=== PATIENT | male | born 1955 | race Hispanic/Latino ===

== ENCOUNTER 2017-11-14 21:59 | Inpatient (IN) | payer MEDICARE ==
[2017-11-14 22:07] VITALS: BMI 21.1
--- NOTE | 2017-11-14 22:40 | ED PDOC ---
Arrival/HPI - General Chief Complaint: Seizure Time Seen by Provider: 11/14/17 22:01 Historian: Family (Brother) - History of Present Illness Narrative History of Present Illness (Text): 11/14/17 22:31 A 61 year old male, whose past medical history includes schizophrenia, presents to the emergency department via EMS with brother, s/p a seizure- like episode this evening. The patient's brother states that the patient was sitting in the kitchen about to eat his meal when he started shaking and moving his arms. He states that at the time of the episode, the patient's eyes were "fixed". The patient's brother notes that the patient does not have history of diabetes or seizures. The patient's brother notes that EMS took his blood glucose level at the scene, which was 28. The patient denies fevers, chills, headache, dizziness , chest pain, shortness of breath, dyspnea on exertion, cough, abdominal pain, nausea, vomiting, diarrhea, back pain, neck pain, urinary/bowel changes, or any other complaint. PMD: Dr. Saenz Time/Duration: Other (This evening) Symptom Onset: Sudden Symptom Course: Unchanged Activities at Onset: Rest, Light Context: Sitting, Home Past Medical History - Provider Review Nursing Documentation Reviewed: Yes - Infectious Disease Hx of Infectious Diseases: None - Endocrine/Metabolic Hx Hypothyroidism: Yes - Psychiatric Hx Psychophysiologic Disorder: Yes Hx Substance Use: No - Surgical History Other/Comment: Throat and intestinal surgery - Anesthesia Hx Anesthesia: Yes Hx Anesthesia Reactions: No Hx Malignant Hyperthermia: No Family/Social History - Physician Review Nursing Documentation Reviewed: Yes Family/Social History: No Known Family HX Smoking Status: Former Smoker Hx Alcohol Use: No Hx Substance Use: No Allergies/Home Meds Allergies/Adverse Reactions: Allergies chlorpromazine [From Thorazine] Adverse Reaction (Verified 11/14/17 22:07) SHORTNESS OF BREATH haloperidol [From Haldol] Adverse Reaction (Verified 11/14/17 22:07) ANAPHYLAXIS levofloxacin [From Levaquin] Adverse Reaction (Verified 11/14/17 22:07) ANGIOEDEMA Home Medications: Home Meds Medication Instructions Recorded Confirmed Clozapine [Clozapine Odt] 1 tab PO HS 11/14/17 11/14/17 Clozapine [Clozapine Odt] 1 tab PO TID 11/14/17 11/14/17 Esomeprazole Magnesium [Nexium] 1 tab PO DAILY 11/14/17 11/14/17 Levothyroxine [Synthroid] 1 tab PO BID 11/14/17 11/14/17 Review of Systems - Physician Review All systems were reviewed & negative as marked: Yes - Review of Systems Constitutional: absent: Fevers, Night Sweats Respiratory: absent: SOB, Cough Cardiovascular: absent: Chest Pain, [place] Gastrointestinal: absent: Abdominal Pain, Diarrhea, Nausea, Vomiting Musculoskeletal: absent: Back Pain, Neck Pain Neurological: Seizure. absent: Headache, Dizziness Physical Exam Vital Signs Reviewed: Yes Vital Signs Temp Pulse Resp BP Pulse Ox 11/15/17 01:45 68 18 105/49 L 100 11/14/17 23:11 84 18 100/62 100 11/14/17 22:09 98.3 F 88 18 111/48 L 100 Temperature: Afebrile Blood Pressure: Hypotensive Pulse: Regular Respiratory Rate: Normal Appearance: Positive for: Well-Appearing, Non-Toxic, Comfortable Pain Distress: None Mental Status: Positive for: Alert and Oriented X 3 Finger Stick Blood Glucose: 65 - Systems Exam Head: Present: Atraumatic, Normocephalic Pupils: Present: Other (Pupils constricted. ) Extroacular Muscles: Present: EOMI Conjunctiva: Present: Normal Mouth: Present: Moist Mucous Membranes Neck: Present: Normal Range of Motion Respiratory/Chest: Present: Clear to Auscultation, Good Air Exchange. No: Respiratory Distress, Accessory Muscle Use Cardiovascular: Present: Regular Rate and Rhythm, Normal S1, S2. No: Murmurs Abdomen: No: Tenderness, Distention, Peritoneal Signs Back: Present: Normal Inspection Upper Extremity: Present: Normal Inspection. No: Cyanosis, Edema Lower Extremity: Present: Normal Inspection. No: Edema Neurological: Present: GCS=15, CN II-XII Intact, Speech Normal Skin: Present: Warm, Dry, Normal Color. No: Rashes Psychiatric: Present: Alert, Oriented x 3, Normal Insight, Normal Concentration Medical Decision Making ED Course and Treatment: 11/14/17 22:44 Impression: A 61 year old male is brought into the emergency department via EMS s/p seizure - like episode this evening. Plan: -- EKG -- Chest X-ray -- Head CT -- Labs -- Urinalysis -- Reassess and disposition Progress Notes: EKG: Ordered, reviewed, and independently interpreted the EKG. Rate : 58 BPM Rhythm : Sinus Bradycarida 11/14/17 23:50: Case discussed with Dr. Tariq, accepts patient to her service. CT Head Without Intravenous Contrast EXAM DATE/TIME: 11/14/2017 10:30 PM Dictated and Authenticated by: Severino Sadler MD 11/14/2017 11:59 PM Eastern Time ([place] & [place]) IMPRESSION: 1. No acute intracranial hemorrhage or acute territorial type infarct. 2. Multiple foci of gas are identified within the facial soft tissues, right side greater than left. Foci of gas also are visualized within the right C1 transverse foramen. Post traumatic change and infection are within the differential. A facial CT is recommended. 3. There are periventricular foci of hypodensity, likely representing small vessel ischemic disease in a patient this age. 4. Mild atrophy. 5. Incidental/non-acute findings are described above. 11/15/17 00:21: On reevaluation, the patient is sleeping in no acute distress. Neruovascularly intact and no complaints at this time. 11/15/17 00:39: Case discussed with Dr. Toña Machado, agrees with additioanl imaging, agrees to see pt. CT Maxillofacial Without Intravenous Contrast EXAM DATE/TIME:11/15/2017 12:08 AM Dictated and Authenticated by: Severino Sadler MD 11/15/2017 1:25 AM Eastern Time ([place] & [place]) IMPRESSION: 1. Multiple tiny foci of gas are visualized within the facial soft tissues bilaterally. Additional foci of gas are visualized within the cavernous sinuses bilaterally. 2. No acute facial bone fracture. 3. Paranasal sinus disease is noted above. CT Cervical Spine Without Intravenous Contrast EXAM DATE/TIME: 11/15/2017 12:13 AM Dictated and Authenticated by: Severino Sadler MD 11/15/2017 1:51 AM Eastern Time ([place] & [place]) IMPRESSION: 1. No acute cervical spine fracture. 2. Biapical bullae are visualized. There is a collection of gas at the right pulmonary apex measuring 3.9 x 3.3 x 2.6 cm, likely representing a bulla or loculated pneumothorax. A follow-up chest CT is recommended. 3. A few tiny foci of epidural gas are visualized within the cervical spine. 4. There is mild retrolisthesis of C3 on C4. 5. There is mild dextroscoliosis of the cervical spine. 6. Spondylosis is visualized at multiple cervical levels. There is a small central protrusion at C3-4, with moderate narrowing of the thecal sac. Findings are discussed with Anthony Couch , 11/15/2017 1:50 AM EDT. The findings were acknowledged and understood. 11/15/17 01:56: Case discussed with Dr. Campos, accepts ICU evaluation. 11/15/17 04:48 - Lab Interpretations Lab Results: 11/14/17 22:56 11/14/17 22:56 Lab Results 11/15/17 02:00: Free T4 0.90, Thyroxine (T4) 5.1 L, Total T3 0.87 L, TSH 3rd Generation 4.72 H 11/15/17 02:00: Free T3 pg/mL 3.46 11/15/17 01:44: Urine Opiates Screen Negative, Urine Methadone Screen Negative, Ur Barbiturates Screen Negative, Ur Phencyclidine Scrn Negative, Ur Amphetamines Screen Negative, U Benzodiazepines Scrn Negative, U Oth Cocaine Metabols Negative, U Cannabinoids Screen Negative 11/15/17 01:44: Urine Color Yellow, Urine Appearance Clear, Urine pH 6.0, Ur Specific [place] 1.010, Urine Protein Negative, Urine Glucose (UA) 100 H, Urine Ketones Negative, Urine Blood Negative, Urine Nitrate Negative, Urine Bilirubin Negative, Urine Urobilinogen 0.2, Ur Leukocyte Esterase Negative 11/15/17 01:16: POC Glucose (mg/dL) 151 H 11/14/17 22:56: Salicylates < 1 L, Acetaminophen < 10.0 L 11/14/17 22:56: Alcohol, Quantitative < 10 11/14/17 22:56: Sodium 135, Potassium 3.4 L, Chloride 101, Carbon Dioxide 26, Anion Gap 11, BUN 12, Creatinine 0.9, Est GFR ( Amer) > 60, Est GFR (Non- Af Amer) > 60, Random Glucose 32 L*, Calcium 8.6, Magnesium 2.2, Total Bilirubin 0.2, AST 27, ALT 33, Alkaline Phosphatase 78, Lactate Dehydrogenase 382, Total Creatine Kinase 107, Troponin I < 0.01, Total Protein 6.0, Albumin 3.4, Globulin 2.6, Albumin/Globulin Ratio 1.3 11/14/17 22:56: PT 11.3, INR 0.99, APTT 28.8 11/14/17 22:56: WBC 8.1, RBC 3.74, Hgb 10.2 L, Hct 30.0 L, MCV 80.2, MCH 27.3, MCHC 34.0, RDW 16.6 H, Plt Count 297, MPV 9.2, Gran % 64.0, Lymph % (Auto) 22.1 , [place] % (Auto) 11.5 H, Eos % (Auto) 1.4 L, Baso % (Auto) 1.0, Gran # 5.21, Lymph # (Auto) 1.8, Wake # (Auto) 0.9 H, Eos # (Auto) 0.1, Baso # (Auto) 0.08 I have reviewed the lab results: Yes - RAD Interpretation Radiology Orders: 11/14/17 22:29 CHEST PORTABLE [RAD] Stat 11/14/17 22:30 HEAD W/O CONTRAST [CT] Stat 11/15/17 00:08 MAXILLOFACIAL W/O CONTRAST [CT] Stat 11/15/17 00:13 CERVICAL SPINE W/O CONTRAST [CT] Stat - EKG Interpretation Interpreted by ED Physician: Yes Type: 12 lead EKG - Medication Orders Current Medication Orders: Albuterol/Ipratropium (Duoneb 3 Mg/0.5 Mg (3 Ml) Ud) 3 ml IH [id number] MAYCO Last Admin: 11/17/17 07:30 Dose: 3 ml Clozapine (Clozaril) 100 mg PO TID MAYCO PRN Reason: Protocol Last Admin: 11/16/17 18:02 Dose: 100 mg Clozapine (Clozaril) 100 mg PO HS MAYCO PRN Reason: Protocol Last Admin: 11/16/17 21:45 Dose: 100 mg Clozapine (Clozaril) 25 mg PO HS MAYCO Last Admin: 11/16/17 21:47 Dose: 25 mg Dextrose (Dextrose 10% In Water) 500 mls @ 100 mls/hr IV Q5H MAYCO Last Admin: 11/17/17 05:38 Dose: 100 mls/hr eMAR Start Stop Document 11/17/17 05:38 LOPEMAR (Rec: 11/17/17 05:39 LOPEMAR ADMIN-PC) Intravenous Solution Start Date 11/17/17 Start Time 05:38 End Date 11/17/17 End time 10:40 Total Infusion Time 302 Levothyroxine Sodium (Synthroid) 75 mcg PO ACB MAYCO Last Admin: 11/17/17 08:15 Dose: Not Given Non-Admin Reason: NPO Lorazepam (Ativan) 2 mg IVP Q3H PRN; Protocol PRN Reason: Seizure activity Discontinued Medications Albuterol/Ipratropium (Duoneb 3 Mg/0.5 Mg (3 Ml) Ud) 3 ml IH [id number] PRN PRN Reason: Shortness of Breath Last Admin: 11/16/17 13:50 Dose: 3 ml Dextrose (Dextrose 50% Inj) 50 ml IVP STAT STA Stop: 11/14/17 22:56 Last Admin: 11/14/17 23:42 Dose: Dextrose (Dextrose 50% Inj) 0 ml IV STAT PRN; Protocol PRN Reason: Hypoglycemia Protocol Dextrose (Dextrose 50% Inj) 50 ml IVP ONCE ONE Stop: 11/15/17 12:01 Last Admin: 11/15/17 12:00 Dose: 50 ml IVP Administration Document 11/15/17 12:00 (Rec: 11/15/17 13:02 [facility] [id number]) Charges for Administration # of IVP Administrations 1 Diphenhydramine HCl (Benadryl) 25 mg PO ONCE ONE Stop: 11/16/17 09:01 Last Admin: 11/16/17 10:26 Dose: 25 mg Dextrose/Sodium Chloride (Dextrose 5%/0.45% Ns 1000 Ml) 1,000 mls @ 100 mls/hr IV .Q10H MAYCO Last Admin: 11/15/17 00:05 Dose: 100 mls/hr eMAR Start Stop Document 11/15/17 00:05 IT (Rec: 11/15/17 00:05 IT [facility] [id number]) Intravenous Solution Start Date 11/15/17 Start Time 00:05 Sodium Chloride (Sodium Chloride 0.9%) 1,000 mls @ 999 mls/hr IV .Q1H1M STA Stop: 11/15/17 03:26 Last Admin: 11/15/17 03:12 Dose: 999 mls/hr eMAR Start Stop Document 11/15/17 03:12 IT (Rec: 04/07/18 03:13 IT [facility] [id number]) Intravenous Solution Start Date 11/15/17 Start Time 03:13 Heparin Sodium/Sodium Chloride (Heparin 56531 Units/250ml 1/2 Normal Saline) 25 ,000 units in 250 mls @ 12.002 mls/hr IV .P93D93H PRN; Protocol; 18 UNITS/KG/HR PRN Reason: ADJUST RATE PER PROTOCOL Last Admin: 11/15/17 04:33 Dose: 18 units/kg/hr, 12.002 mls/hr eMAR Start Stop Document 11/15/17 04:33 ID (Rec: 11/15/17 04:33 ID [id number]) Intravenous Solution Start Date 11/15/17 Start Time 04:33 End Date 11/15/17 Titration Intervention Document 11/15/17 04:33 ID (Rec: 11/15/17 04:33 ID [id number]) Titration Intake Waste Amount 0 Container Volume 250 Titration Dosing Titration Dose 18 IV Rate 12.002 Intake/Decrease Started Sodium Chloride 76.96 meq/ (Dextrose) 519.24 mls @ 100 mls/hr IV .Q5H12M MAYCO Last Admin: 11/15/17 04:36 Dose: 100 mls/hr eMAR Start Stop Document 11/15/17 04:36 ID (Rec: 11/15/17 04:36 ID [facility]) Intravenous Solution Start Date 11/15/17 Start Time 04:36 End Date 11/15/17 Lactulose (Enulose) 20 gm PO ONCE ONE Stop: 11/16/17 12:24 Last Admin: 11/16/17 13:58 Dose: 20 gm - Scribe Statement The provider has reviewed the documentation as recorded by the Gabriel Lantigua Provider Scribe Attestation: All medical record entries made by the Gabriel were at my direction and personally dictated by me. I have reviewed the chart and agree that the record accurately reflects my personal performance of the history, physical exam, medical decision making, and the department course for this patient. I have also personally directed, reviewed, and agree with the discharge instructions and disposition. Disposition/Present on Arrival - Present on Arrival Any Indicators Present on Arrival: No History of DVT/PE: No History of Uncontrolled Diabetes: No Urinary Catheter: No History of Decub. Ulcer: No History Surgical Site Infection Following: None - Disposition Have Diagnosis and Disposition been Completed?: Yes Diagnosis: Pneumothorax, Seizure, Hypoglycemia Disposition: HOSPITALIZED Disposition Time: 08:28 Condition: FAIR
[2017-11-14] MEDS ORDERED: Dextrose 50% SYRINGE Inj (50 ml) ONE (22:52)
[2017-11-14] MEDS ORDERED: Dextrose 50% SYRINGE Inj (50 ml) IVP STA (22:55)
[2017-11-14 23:22] LABS: BASO # 0.08 K/mm3 (0.0-2.0); EOS # 0.1 (0.0-0.7); EOS % 1.4 % (1.5-5.0); GRAN # 5.21 (1.4-6.5); HEMOGLOBIN 10.2 g/dL (14.0-18.0); LYMPH # 1.8 (1.2-3.4); LYMPH % 22.1 % (22.0-35.0); MEAN CELL VOLUME 80.2 fl (80.0-105.0); MEAN CORPUSCULAR HEMOGLOBIN 27.3 pg (25.0-35.0); MEAN PLATELET VOLUME 9.2 fl (7.0-11.0); MONO # 0.9 (0.1-0.6); MONO % 11.5 % (1.0-6.0); RBC 3.74 10^6/uL (3.5-6.1); RED CELL DISTRIBUTION WIDTH 16.6 % (11.5-14.5); WHITE BLOOD COUNT 8.1 10^3/ul (4.5-11.0)
[2017-11-14 23:36] LABS: ACETAMINOPHEN < 10.0 ug/ml (10.0-20.0); SALICYLATE < 1 mg/dL (2.0-20.0)
[2017-11-14 23:44] LABS: INR 0.99 (0.93-1.08); PARTIAL THROMBOPLASTIN TIME 28.8 Seconds (25.1-36.5); PROTHROMBIN TIME 11.3 SECONDS (9.4-12.5)
[2017-11-14] MEDS ORDERED: Dextrose 5%/0.45% NS 1,000 ML IV SCH (23:45)
[2017-11-14 23:46] LABS: TROPONIN I < 0.01 ng/mL
[2017-11-14 23:51] LABS: ALB/GLOB RATIO 1.3 (1.1-1.8); ALBUMIN 3.4 g/dL (3.0-4.8); ALT/SGPT 33 U/L (7-56); AST/SGOT 27 U/L (17-59); BLOOD UREA NITROGEN 12 mg/dL (7-21); CALCIUM 8.6 mg/dL (8.4-10.5); GFR AFRICAN-AMERICAN > 60; GFR NON-AFRICAN AMERICAN > 60
--- NOTE | 2017-11-15 | CT ---
EXAM: CT Head Without Intravenous Contrast EXAM DATE/TIME: 11/14/2017 10:30 PM CLINICAL HISTORY: The patient age is 61 years old and is male; Signs and symptoms; Malaise or fatigue; Additional info: Seizure Facility exam id and description: Ct heads head w/o contrast TECHNIQUE: Axial computed tomography images of the head/brain without intravenous contrast. All CT scans at this facility use one or more dose reduction techniques, viz.: automated exposure control; ma/kV adjustment per patient size (including targeted exams where dose is matched to indication; i.e. head); or iterative reconstruction technique. Coronal and sagittal reformatted images were created and reviewed. COMPARISON: No relevant prior studies available. FINDINGS: Brain: There are periventricular foci of hypodensity, likely representing small vessel ischemic disease in a patient this age. A mirtha-cisterna magna variant is visualized. The acuity of the white matter disease is indeterminate. The white-john differentiation is preserved demonstrating no acute territorial type infarct. Small hypodense dilated perivascular spaces are visualized below the bilateral basal ganglia. No acute intracranial hemorrhage is seen. Midline shift: There is no midline shift. Ventricles: There is mild prominence of the ventricles and sulci, compatible with atrophy. Bones/joints: The calvarium demonstrates no evidence for a depressed fracture. Soft tissues: Multiple foci of gas are identified within the facial soft tissues, right side greater than left. Foci of gas also are visualized within the right C1 transverse foramen. Post traumatic change and infection are within the differential. Vasculature: Tiny nonspecific foci of gas are visualized within the left cavernous sinus. There is atherosclerotic calcification of the intracranial internal carotid arteries. Sinuses: There is mucosal thickening of the right sphenoid sinus. Mastoid air cells: No mastoid effusion. IMPRESSION: 1. No acute intracranial hemorrhage or acute territorial type infarct. 2. Multiple foci of gas are identified within the facial soft tissues, right side greater than left. Foci of gas also are visualized within the right C1 transverse foramen. Post traumatic change and infection are within the differential. A facial CT is recommended. 3. There are periventricular foci of hypodensity, likely representing small vessel ischemic disease in a patient this age. 4. Mild atrophy. 5. Incidental/non-acute findings are described above.
--- NOTE | 2017-11-15 01:25 | CT ---
EXAM: CT Maxillofacial Without Intravenous Contrast EXAM DATE/TIME: 11/15/2017 12:08 AM CLINICAL HISTORY: The patient age is 61 years old and is male; Injury or trauma; Fall; Initial encounter; Blunt trauma (contusions or hematomas); Maxilla; Additional info: Seizure, request by [facility] Facility exam id and description: Ct faces maxillofacial w/o contrast TECHNIQUE: Axial computed tomography images of the face without intravenous contrast. All CT scans at this facility use one or more dose reduction techniques, viz.: automated exposure control; ma/kV adjustment per patient size (including targeted exams where dose is matched to indication; i.e. head); or iterative reconstruction technique. Coronal and sagittal reformatted images were created and reviewed. COMPARISON: No relevant prior studies available. FINDINGS: Bones/joints: No acute facial bone fracture. Soft tissues: Multiple tiny foci of gas are visualized within the facial soft tissues bilaterally. Additional foci of gas are visualized within the cavernous sinuses bilaterally. Orbits: No acute abnormality. Sinuses: There is mucosal thickening of the right sphenoid sinus. A small mucous retention cyst or polyp is visualized within the left sphenoid sinus. No air-fluid levels. Dental: The patient is edentulous. IMPRESSION: 1. Multiple tiny foci of gas are visualized within the facial soft tissues bilaterally. Additional foci of gas are visualized within the cavernous sinuses bilaterally. 2. No acute facial bone fracture. 3. Paranasal sinus disease is noted above.
--- NOTE | 2017-11-15 01:52 | CT ---
EXAM: CT Cervical Spine Without Intravenous Contrast EXAM DATE/TIME: 11/15/2017 12:13 AM CLINICAL HISTORY: The patient age is 61 years old and is male; Pain; Neck pain; Additional info: Air in transverse foramen Facility exam id and description: Ct csps cervical spine w/o contrast TECHNIQUE: Axial computed tomography images of the cervical spine without intravenous contrast. All CT scans at this facility use one or more dose reduction techniques, viz.: automated exposure control; ma/kV adjustment per patient size (including targeted exams where dose is matched to indication; i.e. head); or iterative reconstruction technique. Coronal and sagittal reformatted images were created and reviewed. COMPARISON: No relevant prior studies available. FINDINGS: Vertebrae: No acute cervical spine fracture. There is mild retrolisthesis of C3 on C4. There is mild dextroscoliosis of the cervical spine. The cervical lordosis is preserved. The facet alignment is preserved bilaterally. The occipital condyles and C1-C2 articulations appear intact. The posterior C1 arch is unfused. Epidural space: A few tiny foci of epidural gas are visualized within the cervical spine. Discs/spinal canal/neural foramina: Spondylosis is visualized at multiple cervical levels. There is a small central protrusion at C3-4, with moderate narrowing of the thecal sac. Soft tissues: The prevertebral soft tissues appear within normal limits. Lung apices: Biapical bullae are visualized. There is a collection of gas at the right pulmonary apex measuring 3.9 x 3.3 x 2.6 cm, likely representing a bulla or loculated pneumothorax. No pneumothorax. Mediastinum: Postoperative changes are visualized within the mediastinum, consistent with a clinical history of esophagectomy. IMPRESSION: 1. No acute cervical spine fracture. 2. Biapical bullae are visualized. There is a collection of gas at the right pulmonary apex measuring 3.9 x 3.3 x 2.6 cm, likely representing a bulla or loculated pneumothorax. A follow-up chest CT is recommended. 3. A few tiny foci of epidural gas are visualized within the cervical spine. 4. There is mild retrolisthesis of C3 on C4. 5. There is mild dextroscoliosis of the cervical spine. 6. Spondylosis is visualized at multiple cervical levels. There is a small central protrusion at C3-4, with moderate narrowing of the thecal sac. Findings are discussed with Anthony Couch , 11/15/2017 1:50 AM EDT. The findings were acknowledged and understood.
[2017-11-15 01:59] LABS: URINE BILIRUBIN NEGATIVE (NEGATIVE); URINE BLOOD NEGATIVE (NEGATIVE); URINE GLUCOSE (UA) 100 mg/dL (NEGATIVE); URINE LEUKOCYTE ESTERASE NEGATIVE Leu/uL (NEGATIVE); URINE PROTEIN NEGATIVE mg/dL (<30 mg/dL); URINE UROBILINOGEN 0.2 E.U./dL (<1 E.U./dL)
[2017-11-15 02:01] LABS: URINE APPEARANCE CLEAR (CLEAR); URINE COLOR YELLOW (YELLOW)
[2017-11-15 02:13] LABS: BARBITURATES, UR NEGATIVE (NEGATIVE); BENZODIAZEPINES, UR NEGATIVE (NEGATIVE); OPIATES, UR NEGATIVE (NEGATIVE); PHENCYCLIDINE, UR NEGATIVE (NEGATIVE)
[2017-11-15] MEDS ORDERED: Sodium Chloride 0.9% 1,000 ML IV STA (02:26)
[2017-11-15] MEDS ORDERED: Dextrose 50% SYRINGE Inj (50 ml) IV PRN (02:45)
[2017-11-15 02:52] LABS: FREE T4 0.9 ng/dL (0.78-2.19); T4 5.1 ug/dL (5.5-11.0)
[2017-11-15 03:05] LABS: T3 0.87 ng/mL (0.97-1.69)
[2017-11-15] MEDS ORDERED: Heparin25000 units/250ml 1/2NS 25,000 UNITS/250 ML BAG IV PRN (03:22)
[2017-11-15] MEDS ORDERED: WATER IV SCH ×2 (03:30→03:46)
[2017-11-15] MEDS ORDERED: SODIUM CHLORIDE IV SCH ×2 (03:30→03:46)
[2017-11-15] MEDS ORDERED: DEXTROSE 10% IV SCH ×2 (03:30→03:46)
--- NOTE | 2017-11-15 03:35 | CP.PCM.CON ---
<Oswaldo Lin - Last Filed: 11/15/17 04:34> History of Present Illness - History of Present Illness History of Present Illness: ICU Consult Note for Dr. 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 HPI, ROS, and PE are limited due to pt unresponsive state currently, all hx obtained from brother at bedside. As per brother, episode involved tonic clonic seizures, loss of bladder control, and now likely post-ictal state. Pt non-verbal, not following commands, not reactive to physical or verbal stimuli, drooling with mouth open at bed. As per family, needs regular snacks due to chronically low blood glucose s/p esophageal/stomach sugery, but began seizing approximately 5 minutes before he was due for his pudding. Family denies tongue biting, emesis, or bowel incontinence, but admits to bladder incontinence and generalized tonic-clonic seizures. EMS was called, pt brought to [facility], and was found to have blood glucose of 32. Given amp of D50, started on D5 1/2 NS and blood glucose improved to 150s. No further seizure episodes reported. Of note, imaging obtained in the ED notable for small foci of gas in cavernous sinus thrombosis, and possible RUL pneumo. Satting well currently, no signs of facial or head trauma, and brother reports pt has never displayed attempted self -harming behavior. Med compliant, all meds distributed by family, no reported intentional overdoses. PMH: as above, possible LLE DVT as per brother PSH: unspecified esophageal resection and reattachment to stomach Soc Hx: alternates between brother in [place] and brother her in [place], former tobacco user, brother denies alcohol or illicits Fam Hx: extensive cancer hx in multiple first degree relatives (breast ca, lung ca, and others) PMD: Dr. villatoro [facility] Review of Systems - Review of Systems Systems not reviewed;Unavailable: Other (non-verbal) Past Patient History - Infectious Disease Hx of Infectious Diseases: None - Past Social History Smoking Status: Former Smoker - ENDOCRINE/METABOLIC Hx Hypothyroidism: Yes - PSYCHIATRIC Hx Psychophysiologic Disorder: Yes Hx Substance Use: No - SURGICAL HISTORY Other/Comment: Throat and intestinal surgery - ANESTHESIA Hx Anesthesia: Yes Hx Anesthesia Reactions: No Hx Malignant Hyperthermia: No Meds Allergies/Adverse Reactions: Allergies Allergy/AdvReac Type Severity Reaction Status Date / Time chlorpromazine AdvReac SHORTNESS Verified 11/14/17 22:07 [From Thorazine] OF BREATH haloperidol [From Haldol] AdvReac ANAPHYLAXIS Verified 11/14/17 22:07 levofloxacin [From Levaquin] AdvReac ANGIOEDEMA Verified 11/14/17 22:07 - Medications Medications: Current Medications Dextrose (Dextrose 50% Inj) 0 ml IV STAT PRN; Protocol PRN Reason: Hypoglycemia Protocol Sodium Chloride (Sodium Chloride 0.9%) 1,000 mls @ 999 mls/hr IV .Q1H1M STA Stop: 11/15/17 03:26 Last Admin: 11/15/17 03:12 Dose: 999 mls/hr Lorazepam (Ativan) 2 mg IVP Q3H PRN; Protocol PRN Reason: Seizure activity Physical Exam - Constitutional Appears: Non-toxic, Unkempt, Older Than Stated Age, Chronically Ill Additional comments: Lethargic/unresponsive, drooling - Head Exam Head Exam: ATRAUMATIC, NORMAL INSPECTION, NORMOCEPHALIC - Eye Exam Eye Exam: absent: Conjunctival injection, Scleral icterus Pupil Exam: absent: Irregular, Unequal - ENT Exam ENT Exam: Mucous Membranes Moist Additional comments: drooling - Neck Exam Neck exam: Negative for: Lymphadenopathy, Thyromegaly - Respiratory Exam Respiratory Exam: Decreased Breath Sounds (mildly decreased breath sounds in all [place]), NORMAL BREATHING PATTERN. absent: Accessory Muscle Use, Chest Wall Tenderness, Clear to Auscultation Bilateral, Rales, Rhonchi, Wheezes - Cardiovascular Exam Cardiovascular Exam: REGULAR RHYTHM, RRR, +S1, +S2. absent: Bradycardia, Tachycardia, Irregular Rhythm, +S4 - GI/Abdominal Exam GI & Abdominal Exam: Normal Bowel Sounds, Soft. absent: Diminished Bowel Sounds , Distended, Firm, Hyperactive Bowel Sounds, Hypoactive Bowel Sounds, Rigid - Extremities Exam Extremities exam: Positive for: normal capillary refill, pedal pulses present. Negative for: joint swelling, pedal edema - Neurological Exam Additional comments: lethargic/unresponsive, not following commands, no spontaneous movements - Psychiatric Exam Additional comments: unable to assess - Skin Skin Exam: Dry, Intact, Normal Color, Warm Results - Vital Signs Recent Vital Signs: Last Vital Signs Temp 98.3 F 11/14/17 22:09 Pulse 68 11/15/17 01:45 Resp 18 11/15/17 01:45 BP 105/49 L 11/15/17 01:45 Pulse Ox 100 11/15/17 01:45 - Labs Result Diagrams: 11/14/17 22:56 11/14/17 22:56 Labs: Laboratory Results - last 24 hr 11/15/17 02:32 POC Glucose (mg/dL) 202 H Assessment & Plan - Assessment and Plan (Free Text) Assessment: This is a 61 yo M with PMH notable for schizophrenia (follows at [place] in [place]) , unspecified 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 He is being admitted to the ICU for close monitoring of blood glucose in setting of NSR in acute seizure suspected 2 /2 to hypoglycemia. Plan: Neuro: -neuro checks q1, accuchecks q1 -aspiration precautions, seizure precautions -neuro consulted, aware of pt, no acute interventions at this time, will see pt in AM -maintain normothermia, maintain euglycemia (BG 140-180) -ativan 2mg q3h prn for seizure activity; discussed with pharmacy, safe to use while holding home clozapine -NPO pending swallow study -given small foci of gas in cavernous sinus on CT, and possible hx VTE (brother reports prior hx DVT, NOT on anticoagulation, self-resolved), concern for - possible cavernous sinus thrombosis, empirically anticoagulating with heparin drip -avoid hyponatremia, as can cause seizures; Na 135 in ED, pending D10 NS for IV fluids to prevent hypoglycemia and hyponatremia while NPO Pulm: satting well on room air, no indication for supplemental O2 at this time Cardio: Regular rate and rhythm on exam BP in ED 80's-90's systolic during exam; NS 1L bolus ordered, then to be on D10 NS at 100cc/hr GI: possible dumping syndrome 2/2 shortened esophagus NPO pending swallow study Protonix IV for ppx Renal: Cr wnl, continue to monitor maintain euvolemia and euglycemia replete electrolytes as needed Heme hgb 10.2, no prior labs to compare to hemodynamically stable, no indication to transfuse LE duplex to r/o DVT given hx of severe COPD and heparin drip covers empirically ID: no leukocytosis, afebrile maintain normothermia Endo: -hx hypothyroidism on synthroid -thyroid panel ordered, f/u results -if hyperthyroid, may be contributing to hypoglycemia, would need to hold thyroid replacement until hyperthyroid reduced -d10 + NS 100cc/hr, fingersticks q1h, hypoglycemia protocol in place (absent PO option and d5 1/2 NS) -endo consulted, appreciate their recs Dispo: ICU for close monitoring, neuro checks, and BP/BMP checks FEN: NPO, D10 NS 100cc/hr Consults: Neuro, Endo Access: Peripheral IVs Ppx: protonix for GI, heparin drip covers for DVT Pt reviewed and discussed with attending, Dr Campos <Beth COOK,Scott - Last Filed: 11/15/17 08:36> Meds - Medications Medications: Current Medications Dextrose (Dextrose 50% Inj) 0 ml IV STAT PRN; Protocol PRN Reason: Hypoglycemia Protocol Heparin Sodium/Sodium Chloride (Heparin 46482 Units/250ml 1/2 Normal Saline) 25 ,000 units in 250 mls @ 12.002 mls/hr IV .[id number] PRN; Protocol; 18 UNITS/KG/HR PRN Reason: ADJUST RATE PER PROTOCOL Last Admin: 11/15/17 04:33 Dose: 18 units/kg/hr, 12.002 mls/hr Sodium Chloride 76.96 meq/ (Dextrose) 519.24 mls @ 100 mls/hr IV .Q5H12M [facility] Last Admin: 11/15/17 04:36 Dose: 100 mls/hr Lorazepam (Ativan) 2 mg IVP Q3H PRN; Protocol PRN Reason: Seizure activity Results - Vital Signs Recent Vital Signs: Last Vital Signs Temp 98.2 F 11/15/17 03:32 Pulse 58 L 11/15/17 03:32 Resp 17 11/15/17 03:40 BP 127/72 11/15/17 03:32 Pulse Ox 100 11/15/17 03:32 - Labs Result Diagrams: 11/15/17 05:30 11/15/17 05:30 Labs: Laboratory Results - last 24 hr 11/15/17 11/15/17 11/15/17 02:32 04:25 05:30 WBC 9.2 RBC 4.06 Hgb 11.0 L Hct 32.6 L MCV 80.3 MCH 27.1 MCHC 33.7 RDW 16.4 H Plt Count 280 MPV 9.2 Gran % 73.8 H Lymph % (Auto) 14.5 L [place] % (Auto) 10.0 H Eos % (Auto) 1.2 L Baso % (Auto) 0.5 Gran # 6.77 H Lymph # (Auto) 1.3 [place] # (Auto) 0.9 H Eos # (Auto) 0.1 Baso # (Auto) 0.05 Sodium Potassium Chloride Carbon Dioxide Anion Gap BUN Creatinine Est GFR ( Amer) Est GFR (Non-Af Amer) POC Glucose (mg/dL) 202 H 160 H Random Glucose Calcium Phosphorus Magnesium Total Bilirubin AST ALT Alkaline Phosphatase Total Protein Albumin Globulin Albumin/Globulin Ratio 11/15/17 11/15/17 05:30 06:25 WBC RBC Hgb Hct MCV MCH MCHC RDW Plt Count MPV Gran % Lymph % (Auto) [place] % (Auto) Eos % (Auto) Baso % (Auto) Gran # Lymph # (Auto) [place] # (Auto) Eos # (Auto) Baso # (Auto) Sodium 137 Potassium 4.1 Chloride 101 Carbon Dioxide 29 Anion Gap 10 BUN 10 Creatinine 0.9 Est GFR ( Amer) > 60 Est GFR (Non-Af Amer) > 60 POC Glucose (mg/dL) 164 H Random Glucose 170 H Calcium 8.8 Phosphorus 3.4 Magnesium 2.3 H Total Bilirubin 0.2 AST 23 ALT 29 Alkaline Phosphatase 82 Total Protein 5.9 Albumin 3.4 Globulin 2.5 Albumin/Globulin Ratio 1.4 Attending/Attestation - Attestation I have personally seen and examined this patient.: Yes I have fully participated in the care of the patient.: Yes I have reviewed all pertinent clinical information: Yes Notes (Text): -I agree with the above ICU consult completed by the resident physician with the following additions and/or changes: -The patient is a 61 year old man with a history of schizophrenia, remote history of esophagectomy and hypothyroidism who presented with questionable seizure-like activity and recurrent hypoglycemia (FS as low as 29). Of note, details of history are limited and were obtained from the patients brother-in- law (at bedside) since the patient was a very poor and unreliable historian ( and since patient has never been admitted to [facility] in the past). According to [id number], the patient also has a remote history of lower leg DVT as well as previous episodes of hypoglycemia. CT of head and neck done in the ED showed possible air in the cavernous sinus and a possible small loculated pneumothorax. Due to these abnormal findings, alongside an unclear past history , the patient will be admitted to the ICU overnight for close monitoring. Given the possible air in the cavernous sinus noted on CT-scan, which can be due to thrombus, we will be empirically start him on therapeutic Heparin drip overnight (since he has no contraindications to anticoagulation). Neurology has already been consulted. He will be kept NPO until a formal swallow evaluation is done in the morning. PRN IV Ativan alongside fall and seizure precautions have been ordered. Also, D10W IVFs with hourly accu-checks have been ordered ( as well as an Endocrine consult). The etiology of his recurrent hypoglycemia may be associated with his unclear history of esophagectomy. Will defer to the primary team to obtain records from [facility] in AM. Lastly, per radiology recommendations, a CT-chest has also been ordered to further evaluate the loculated pneumothorax noted on CT of neck. Critical Care Time Spent: 60-90 minutes
[2017-11-15 05:56] LABS: BASO # 0.05 K/mm3 (0.0-2.0); BASO % 0.5 % (0.0-3.0); EOS # 0.1 (0.0-0.7); EOS % 1.2 % (1.5-5.0); GRAN # 6.77 (1.4-6.5); GRAN % 73.8 % (50.0-68.0); LYMPH # 1.3 (1.2-3.4); LYMPH % 14.5 % (22.0-35.0); MEAN CELL VOLUME 80.3 fl (80.0-105.0); MEAN CORPUSCULAR HEMOGLOBIN 27.1 pg (25.0-35.0); MEAN CORPUSCULAR HGB CONC 33.7 g/dl (31.0-37.0); MEAN PLATELET VOLUME 9.2 fl (7.0-11.0); MONO # 0.9 (0.1-0.6); RBC 4.06 10^6/uL (3.5-6.1); RED CELL DISTRIBUTION WIDTH 16.4 % (11.5-14.5); WHITE BLOOD COUNT 9.2 10^3/ul (4.5-11.0)
[2017-11-15 06:09] LABS: ALB/GLOB RATIO 1.4 (1.1-1.8); ALBUMIN 3.4 g/dL (3.0-4.8); ALT/SGPT 29 U/L (7-56); AST/SGOT 23 U/L (17-59); BLOOD UREA NITROGEN 10 mg/dL (7-21); CALCIUM 8.8 mg/dL (8.4-10.5); GFR AFRICAN-AMERICAN > 60; GFR NON-AFRICAN AMERICAN > 60
--- NOTE | 2017-11-15 08:43 | RAD ---
HISTORY: ams COMPARISON: No prior. FINDINGS: LUNGS: Minimal patchy infiltrate at the right lung base PLEURA: There is blunting of the right costophrenic angle consistent with a small effusion or pleural scar CARDIOVASCULAR: Normal. OSSEOUS STRUCTURES: No significant abnormalities. VISUALIZED UPPER ABDOMEN: Normal. OTHER FINDINGS: None. IMPRESSION: Minimal patchy infiltrate at the right lung base. Small pleural effusion
[2017-11-15] MEDS ORDERED: Dextrose 50% SYRINGE Inj (50 ml) IVP ONE (12:00)
--- NOTE | 2017-11-15 12:37 | PN ---
DATE: 11/15/2017 [employer] SPECIALIST NOTE LOCATION: [facility] ([facility] SUBJECTIVE: The patient is resting in bed, awake and alert, stating that he is ready to eat this morning and described how his meals usually are prepared and how much he eats and the type of food he eats usually during the day. The patient has no complaints of shortness of breath, cough, wheezing, chest congestion. No fever, chills, nausea or vomiting. No abdominal pain or chest pain. He is very comfortable in bed and states that if he does not eat, usually his blood sugar drops. PHYSICAL EXAMINATION: VITAL SIGNS: Physical exam note that his temperature is 98.2, his pulse is 58, respirations of 17 and BP is 127/72, O2 sat is 100% on room air. HEENT: Head is atraumatic, normocephalic. Eyes reactive to light. Ear, nose and throat seemed to be within normal limits. NECK: Supple. No JVD. No thyroid enlargement. No lymph nodes. HEART: Has regular rate and rhythm. Normal S1, S2. LUNGS: Reveal good breath sounds bilaterally. ABDOMEN: Soft. Decreased bowel sounds. GENITALIA AND RECTAL: Deferred. MUSCULOSKELETAL: No joint deformities. EXTREMITIES: Reveal no significant lower extremity edema. NEUROLOGICALLY: The patient is awake and alert and answering questions appropriately and moving all extremities. LABORATORY DATA: As far as his laboratories are concerned, his white count is 9.2, hemoglobin is 11.0, hematocrit 32.6 with platelets of 280,000. The patient's sodium is 137, potassium 4.1, chloride 101, CO2 of 29 with a BUN of 10, creatinine of 0.9 and a glucose of 164. As far as his x-rays, CT of the head reveals no acute intracranial hemorrhages or acute infarcts. Multiple foci of gas are identified within the facial soft tissue, right side greater than left. Foci of gas are also visualized within the right C1 transverse foramen. Posttraumatic change and infection are within the differential. There are periventricular foci of hypodensity like representing small vessel ischemic disease. CT of the maxillofacial reveals multiple tiny foci of gas visualized within the facial soft tissues bilaterally. Additional foci of gas are visualized within the cavernous sinuses bilaterally. Chest x-ray reveals that there are minimal patchy infiltrates at the right lung base, small pleural effusion. IMPRESSION: This patient presented with seizure and possible pneumothorax with most likely a bulla or cyst. The patient has air in the cavernous sinus. Rule out thrombosis. He has a history of schizophrenia as well as an esophagectomy and is noted to have hypoglycemia. The patient has anemia as well. PLAN: As far as our plan, we will continue with D10 drip, but the patient states that he is hungry and we will start p.o. feeding. The patient is on heparin IV and we will have Neurology evaluate for possible cavernous sinus thrombosis. We will continue with Ativan p.r.n. The patient also is getting IV fluids. We will follow him closely for his blood sugars and the patient is being evaluated by Neurology and we will follow closely and treat aggressively along with the other consultants and the primary care doctor. Ventura Pena MD
--- NOTE | 2017-11-15 13:06 | CT ---
PROCEDURE: CT Chest without contrast HISTORY: reassess possible pneumothorax COMPARISON: None. TECHNIQUE: Contiguous axial images were obtained through the chest without intravenous contrast enhancement. Sagittal and coronal reconstructions were performed. Radiation dose (DLP): 170 mGy-cm. This CT exam was performed using one or more of the following dose reduction techniques: Automated exposure control, adjustment of the mA and/or kV according to patient size, and/or use of iterative reconstruction technique. FINDINGS: LUNGS: Emphysematous changes are seen in both lungs with a large bulla in the right lung apex. There is no evidence of pneumothorax. There is scarring or atelectasis at the right lung base posteriorly. MEDIASTINUM: Unremarkable thoracic aorta. No aneurysm. Normal sized heart. Main pulmonary artery unremarkable. No vascular congestion. No lymphadenopathy. PLEURA: No pleural fluid. No pneumothorax. BONES: No fracture. No destructive lesion. UPPER ABDOMEN: The esophagus is dilated throughout its length. This could be due to a distal stenosis or achalasia. OTHER FINDINGS: None. IMPRESSION: Emphysematous changes are seen in both lungs with a large bulla in the right lung apex. There is no evidence of pneumothorax. The esophagus is dilated throughout its length. This could be due to a distal stenosis or achalasia.
[2017-11-15] MEDS ORDERED: Gadodiamide 287 MG/ML VIAL (15ML) IV ONE (14:15)
--- NOTE | 2017-11-15 15:06 | MRI ---
PROCEDURE: MRI BRAIN WITH AND WITHOUT CONTRAST HISTORY: cerebral sius thrombosis rule out DO AN MRV COMPARISON: None. TECHNIQUE: Multiplanar, multisequence MR images of the brain were obtained with and without intravenous contrast enhancement. 15 cc of Omniscan FINDINGS: HEMORRHAGE: None DWI: No evidence of an acute or early subacute infarction. BRAIN PARENCHYMA: No mass,mass effect or edema. Chronic microvascular changes are seen in the periventricular white matter. ENHANCEMENT: No abnormal intracranial enhancement. VENTRICLES: Unremarkable. No hydrocephalus. CRANIUM: Unremarkable. ORBITS: Grossly unremarkable. PARANASAL SINUSES/MASTOIDS: Clear VASCULAR SYSTEM: Normal flow voids are seen in the sagittal and transverse sinuses. There is no evidence of sinus thrombosis OTHER FINDINGS: None . IMPRESSION: Normal flow voids are seen in the sagittal and transverse sinuses. There is no evidence of sinus thrombosis No evidence of acute infarct
--- NOTE | 2017-11-15 15:21 | CON ---
DATE: 11/15/2017 CHIEF COMPLAINT: Seizure. HISTORY OF PRESENT ILLNESS: This is a 61-year-old man notable for schizophrenia, follows at [facility], had some unspecified esophageal disease status post esophagus removal and reconnection of esophageal remnant to the stomach and hypothyroidism, who was brought in for witnessed seizure, generalized tonic-clonic with bowel and bladder incontinence noticed by the brother. It was postictal. When he came in, not following commands. He was found to have blood sugar of 32, was given amp of D50 and was started on D5 half NS and blood glucose improved to 150s. No further seizure episodes. He is currently sitting up and eating food and denies any acute distress or any headaches at this time. No change in sense, vision, taste, or smell. He is on clozapine 100 mg p.o. t.i.d. and 125 at bedtime for his underlying schizophrenia. Of note, in the ER, it was noted that he has some small foci of gas on his CT head. It was noted that he has some multiple foci of gas identified within the facial soft tissues in the right side greater than the left and foci of gas visualized in the right C1 transverse foramen. In addition, he had a maxillofacial CT scan followed by which shows multiple foci of gas within the facial soft tissues bilaterally and foci of gas within the cavernous sinus bilaterally. Therefore, he is on heparin drip for prophylaxis of cavernous sinus thrombosis. We definitely would need an MRV to further evaluate that, but currently, he is stable in terms of seizure, no need for any antiepileptics or EEGs since this is a provoked seizure from hypoglycemia. He is moving all extremities, very cachectic looking. PAST MEDICAL HISTORY: History of schizophrenia, unspecified esophageal disease status post esophagus removal and reconnection of esophageal remnant to the stomach, history of hypothyroidism. REVIEW OF SYSTEMS: A 14-point review of systems negative except as per the HPI. FAMILY HISTORY: Noncontributory. SOCIAL HISTORY: No illicit drug use, smoking, or EtOH abuse at this time. ALLERGIES: CHLORPROMAZINE, HALOPERIDOL, AND LEVOFLOXACIN. MEDICATIONS: Reviewed by nurse's reconciliation sheet. LABORATORY DATA: Sodium is 137, potassium 4.1, chloride of 105, carbon dioxide 29, BUN of 10, creatinine 0.9, and random glucose of 35. PHYSICAL EXAMINATION: VITAL SIGNS: Temperature 98.3, pulse rate , blood pressure 105/49, respiratory rate , and oxygen [id number]% via nasal cannula. GENERAL: The patient is cachectic looking, sitting up in bed, in no acute distress. HEENT: Head is atraumatic and normocephalic. PERRLA. Extraocular muscles are intact. NECK: Supple. No JVD. No adenopathy noted. LUNGS: Clear to auscultation. No adventitious sounds. HEART: S1 and S2, normal rate and rhythm. No murmurs, rubs, or gallops. ABDOMEN: Soft, nontender, and nondistended. Bowel sounds are present. EXTREMITIES: No clubbing. No cyanosis. Peripheral pulses are 2+ felt bilaterally. NEUROLOGIC: The patient is having a flat affect. Poor attention span and slow thought process. Speech is fluent without any errors. Cranial nerves II through XII are intact. Motor: Moves all extremities equally. No pronator drift seen. Sensory: Light touch, pinprick, proprioception, and vibration are intact. DTRs are 2+ throughout, 1 at the ankles bilaterally. Toes are downgoing bilaterally. Coordination: [id number] intact. No dysmetria noted. Gait is deferred for now. ASSESSMENT AND PLAN: This is a 61-year-old man notable for schizophrenia, follows at [facility] in [place], unspecified esophageal disease status post esophagus removal and reconnection of esophageal remnant to the stomach and hypothyroidism, was brought in by EMS secondary to witnessed seizure at home, generalized tonic-clonic with bladder incontinence, found to have a blood sugar of 32, was given status post D50 and his blood sugar is slowly improving. His acute seizure is secondary to hypoglycemia, which is likely a provoked seizure; therefore, no need for an EEG or antiepileptics since this is a provoked seizure from hypoglycemia. Of note, there was some foci of gas found in his bilateral cavernous sinus in addition to his facial soft tissues; therefore, he has been placed on heparin drip for possible venous sinus thrombosis, but at this time, we will recommend an MRV to further evaluate that before completing with full anticoagulation. At this time, continue to monitor his blood sugars, keep his blood sugars between 140-180. Monitor his electrolytes and correct accordingly. Resume his home psychiatric medications to prevent any psychosis. Continue with current present medical and ICU management. Thank you for this consult. Darien Machado MD
--- NOTE | 2017-11-15 16:08 | CARD ---
APPROVED REPORT EKG Measurement Heart [id number] 126P [id number] <Conclusion> Ectopic atrial rhythm Otherwise normal ECG
[2017-11-15] MEDS ORDERED: Albuterol-Ipratrop 3 mg / 0.5 (3 ml) UD IH SCH (20:00)
[2017-11-16 06:51] LABS: T4 4.6 ug/dL (5.5-11.0)
[2017-11-16 07:04] LABS: BASO # 0.05 K/mm3 (0.0-2.0); BASO % 0.7 % (0.0-3.0); EOS # 0.3 (0.0-0.7); EOS % 3.4 % (1.5-5.0); GRAN # 5.31 (1.4-6.5); GRAN % 70.2 % (50.0-68.0); HEMOGLOBIN 11.2 g/dL (14.0-18.0); LYMPH # 1.2 (1.2-3.4); LYMPH % 15.3 % (22.0-35.0); MEAN CORPUSCULAR HEMOGLOBIN 26.7 pg (25.0-35.0); MEAN CORPUSCULAR HGB CONC 33.4 g/dl (31.0-37.0); MEAN PLATELET VOLUME 9.4 fl (7.0-11.0); MONO # 0.8 (0.1-0.6); MONO % 10.4 % (1.0-6.0); RBC 4.19 10^6/uL (3.5-6.1); RED CELL DISTRIBUTION WIDTH 16.7 % (11.5-14.5); WHITE BLOOD COUNT 7.6 10^3/ul (4.5-11.0)
[2017-11-16] MEDS: Albuterol-Ipratrop 3 mg / 0.5 (3 ml) UD IH PRN ×2 (07:33→13:50)
[2017-11-16 07:39] LABS: ALB/GLOB RATIO 1.3 (1.1-1.8); ALBUMIN 3.4 g/dL (3.0-4.8); ALT/SGPT 35 U/L (7-56); AST/SGOT 29 U/L (17-59); BLOOD UREA NITROGEN 9 mg/dL (7-21); CALCIUM 9.1 mg/dL (8.4-10.5); GFR AFRICAN-AMERICAN > 60; GFR NON-AFRICAN AMERICAN > 60
[2017-11-16] MEDS: Levothyroxine 75 MCG TAB PO SCH (08:20)
--- NOTE | 2017-11-16 12:20 | PN ---
DATE: 11/16/2017UBJECTIVE: The patient is resting in bed, awake and alert. No complaints of shortness of breath, cough, wheezing, chest congestion. States that he does have allergies and he would like to have Benadryl. The patient is eating with no problems and tolerating meals, continues to require D10 drip for episodes of hypoglycemia. PHYSICAL EXAMINATION VITAL SIGNS: Note that his temperature is 98.2, pulse is 68, respirations are 21 and BP is 117/65. SKIN: Warm and dry. HEENT: Head is atraumatic, normocephalic. Eyes reactive to light. EARS, NOSE AND THROAT: Seem to be within normal limits. NECK: Supple. No JVD. No thyroid enlargement. No lymph nodes. HEART: Regular rate and rhythm. Normal S1, S2. LUNGS: Reveal fairly good breath sounds bilaterally. ABDOMEN: Soft. Decreased bowel sounds. GENITALIA: Deferred. RECTAL: Deferred. MUSCULOSKELETAL: No joint deformities. EXTREMITIES: Reveal trace lower extremity edema. NEUROLOGIC: He seemed to be grossly intact. LABORATORY DATA: As far as laboratories, his white count is 7.6, hemoglobin is 11.2, hematocrit 33.5 with platelets of 320,000. The patient's PTT is 31.1. Sodium is 137, potassium 4, chloride 101, CO2 of 28 with BUN of 9, creatinine of 0.9 and glucose of 121. IMPRESSION: The patient presented with seizures. He also has a history of schizophrenia and esophagectomy. It is noted the patient has hypoglycemia requiring D10 and frequent meals. He also is noted to be anemic. PLAN: As far as our plan, we will continue with D10 and monitor his blood sugars closely. The patient is getting frequent meals with increased protein as per dietitian. He is also on neurological evaluation and is getting Benadryl for allergies. The patient will be followed closely and we will continue to treat aggressively with the other consultants and the primary care doctor. Ventura Pena MD
--- NOTE | 2017-11-16 15:46 | PN ---
DATE: ENDOCRINOLOGY FOLLOWUP NOTE LOCATION: [facility]U 129, room 1. SUBJECTIVE: This is a 61-year-old male with chronic schizoaffective disorder and schizophrenia, presenting here with a sudden seizure like event, most likely precipitated by a metabolic etiology, i.e., by episodic bouts of severe and marked hypoglycemia occurring at home as noted. He admits to frequent near syncopal and syncopal episodes over the last few months with possible marked hypoglycemic episodes as noted thereof. His glycemic profile has improved overnight and the latest glucose levels have ranged from 98-122 mg/dL. His latest chemistry showed a BUN of 9, sodium 137, potassium 4, chloride 101, CO2 of 28, glucose 121, and creatinine 0.9. His thyroid study showed a T4 of 4.6 with a TSH of 1.93 indicative of the so-called acute sick euthyroid syndrome. His serum cortisol level is 12.9 mcg/dL. His glucose levels yesterday were extremely low, levels of below 20-35 mg/dL. 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 The possibility of an underlying autoimmune endocrinopathy and/or insulin excess syndromes has also to be excluded at this time and we are waiting the reports of the hormonal profile as ordered. In the meantime, the most likely etiology would be the so called functional hypoglycemia, which is related to very erratic meal portions at this time. PLAN OF MANAGEMENT: We will highly recommend a high-protein frequent small feedings of at least 6 times daily with 3 meals and 3 snacks to prevent overinsulinization and supervening rapid decline of blood sugars as noted thereof. We will obtain serial chemistries and supplement accordingly as needed. We will hold off any kind of oral hypoglycemic therapy for now as noted. We will follow. Osiris Alvarado MD
[2017-11-16] MEDS: Albuterol-Ipratrop 3 mg / 0.5 (3 ml) UD IH SCH (19:04)
--- NOTE | 2017-11-16 21:49 | PN ---
DATE: 11/16/2017 HISTORY OF PRESENT ILLNESS: Mr. Benavidez is a 61-year-old male admitted to the hospital after he had a witnessed tonic-clonic generalized seizure. He also developed hypoglycemia with a glucose of 32, was given D50 in the ambulance.. Currently sitting comfortably in bed, in no acute distress. No seizure during hospitalization. PAST MEDICAL HISTORY: DVT, esophagectomy for unknown reasons, and hypothyroidism. PAST SURGICAL HISTORY: Esophageal resection and reattachment to stomach. Retinal and throat surgery. SOCIAL HISTORY: Lives with a brother. FAMILY HISTORY Positive for cancer in first-degree relative; breast cancer, lung cancer. REVIEW OF SYSTEM: As per HPI. Rest of the 12-point review of systems reviewed and negative. ALLERGIES: CHLORPROMAZINE, HALOPERIDOL, AND LEVOFLOXACIN. PERSONAL HISTORY: Nonsmoker. No history of alcohol abuse. PHYSICAL EXAMINATION: GENERAL: Comfortable in bed, in no acute distress. VITAL SIGNS: Stable. Temperature 98.3, heart rate 68 per minute, respiratory rate 18 per minute, blood pressure 105/49, and pulse ox is 100% on room air. HEENT: Pallor positive. NECK: No lymphadenopathy. CHEST: Air entry present and equal bilaterally. No added sounds. CARDIOVASCULAR: S1, S2 normal. No murmur. No gallop. ABDOMEN: Soft, nontender. No hepatosplenomegaly. EXTREMITIES: No edema. CENTRAL NERVOUS SYSTEM: Alert and oriented x3. No focal sensory motor deficit. ASSESSMENT: 1. Seizure disorder. 2. Hypoglycemia. 3. Anemia. 4. Hypothyroidism. PLAN: He is currently admitted to ICU for monitoring. Continue Ativan 2 mg IV every 3 hours p.r.n. for seizure, Synthroid increased to 75 mcg daily, currently on dextrose drip, DuoNeb p.r.n. Hemoglobin and hematocrit stable. UA negative. Renal functions normal. Sunita Moreno MD
[2017-11-17] MEDS: Albuterol-Ipratrop 3 mg / 0.5 (3 ml) UD IH SCH ×4 (01:21→19:40)
--- NOTE | 2017-11-17 02:55 | CON ---
DATE: 11/16/2017 REASON FOR CONSULTATION: Hypoglycemia, status post esophagectomy. HISTORY OF PRESENT ILLNESS: This is a 61-year-old patient with past medical history of schizophrenia, being followed at [facility] by primary physician Dr. Saenz and also psychiatrist. He was visiting his sister in [place] and he was found to have tonic-clonic seizures at home and patient was found to be hypoglycemic with blood sugar of 32. Patient was given D50. Patient did improve. The history is mainly from patient's [id number] and also his brother, Zurdo Benavidez; telephone number [phone]. I did call the patient's brother to get more information about the patient's past medical history. He mentioned to me that he had similar episode of hypoglycemia and he was evaluated in [facility] about 3 years ago and he was diagnosed to have reactive hypoglycemia. The patient had esophagectomy in 2009 and the reason what he mentioned was eroded esophagus. No history of vomiting blood. No fever now. PAST MEDICAL HISTORY: Other past medical history is significant as above. FAMILY HISTORY: Hypothyroidism, schizophrenia. SOCIAL HISTORY: Denies smoking. No alcohol. ALLERGIES: MULTIPLE INCLUDING HALDOL, LEVAQUIN, AND THORAZINE. REVIEW OF SYSTEMS: Positive as above. Other systems reviewed. History of chronic constipation. He has been taking on and off laxatives. PHYSICAL EXAMINATION: GENERAL: Patient is lying on the bed, not in acute distress. Patient's [id number] was at bedside. Family was at bedside. VITAL SIGNS: Afebrile, blood pressure 117/65, respirations 17, O2 saturation 93%. HEENT: Atraumatic, anicteric. NECK: Supple. HEART: S1, S2 heard. LUNGS: Bilateral air entry present. ABDOMEN: Soft. No tenderness. EXTREMITIES: No edema. No cyanosis. NEUROLOGIC: Alert, moves all the extremities. LABORATORY DATA: Hemoglobin 11.1, hematocrit 33.5, WBC 7.6, platelets 320. Chemistry is essentially unremarkable. The sugar has been maintained. Patient did have a CAT scan of the head done with questionable air in the sinuses, but an MRI did not reveal the normal flow. IMPRESSION: This is a 61-year-old patient status post esophagectomy for "esophageal erosions" in 2009. He had an episode of hypoglycemia before 3 years ago and as per the patient's family, he was evaluated and diagnosed to have reactive hypoglycemia. Patient had regular followup in [facility] in [facility]. We do not have access to his previous records right now. Patient has been taking proton pump inhibitor for longer time. RECOMMENDATIONS: 1. Would recommend CT scan of the abdomen and pelvis to rule out any pancreatic lesion, rule out insulinoma. 2. Follow up Endocrinology consult. 3. Since patient has been regularly followed longtime in [facility], we limit our workup to the basic emergent evaluations here for elective followup to be followed up at [place]. We will continue to closely followup. 4. Patient has a poor dentition. Would recommend to give pureed food. We will discuss with the dietitian regarding the diet change for dumping syndrome as it was thought to be in the previous evaluation related to reactive hypoglycemia. We will also limit the diet to pureed consistency. Thank you very much for allowing us to participate in the care of the patient. Felix Mcnair MD
[2017-11-17] MEDS ORDERED: Barium Sulfate Susp 2.1% w/v, 2.0% w/w 450 mL Bottle PO ONE (06:43)
[2017-11-17 07:37] LABS: ALB/GLOB RATIO 1.3 (1.1-1.8); ALT/SGPT 38 U/L (7-56); AST/SGOT 28 U/L (17-59); BLOOD UREA NITROGEN 8 mg/dL (7-21); CALCIUM 9.4 mg/dL (8.4-10.5); GFR AFRICAN-AMERICAN > 60; GFR NON-AFRICAN AMERICAN > 60
[2017-11-17] MEDS ORDERED: Iohexol 350 MG/100 ML VIAL ONE (07:37)
[2017-11-17] MEDS: Levothyroxine 75 MCG TAB PO SCH ×2 (08:15→09:19)
--- NOTE | 2017-11-17 08:48 | US ---
HISTORY: Leg pain and swelling. Evaluate for DVT PHYSICIAN(S): Osmel Ontiveros MD. TECHNIQUE: Duplex sonography and color-flow Doppler with graded compression were used to evaluate the deep venous systems of both lower extremities. FINDINGS: The visualized deep venous systems of both lower extremities are sonographically normal and compressible. Normal wave forms and augmentation are seen. There is no sonographic evidence for deep venous thrombosis in the visualized segments of both lower extremities. IMPRESSION: No sonographic evidence for deep venous thrombosis in the visualized segments of both lower extremities.
--- NOTE | 2017-11-17 09:53 | CT ---
PROCEDURE: CT Abdomen and Pelvis with contrast HISTORY: Hypoglycemi R/O pancreatic lesion COMPARISON: None. TECHNIQUE: Contrast dose: Radiation dose: Total exam DLP = mGy-cm. This CT exam was performed using one or more of the following dose reduction techniques: Automated exposure control, adjustment of the mA and/or kV according to patient size, and/or use of iterative reconstruction technique. FINDINGS: LOWER THORAX: Bilateral pleural thickening with pleural calcification and bibasilar atelectasis. LIVER: Unremarkable. No gross lesion or ductal dilatation. GALLBLADDER AND BILE DUCTS: Cholelithiasis. PANCREAS: Unremarkable. No gross lesion or ductal dilatation. SPLEEN: Unremarkable. ADRENALS: Unremarkable. No mass. KIDNEYS AND URETERS: 1.5 centimeter left upper pole renal cyst. . No hydronephrosis. No solid mass. VASCULATURE: Unremarkable. BOWEL: Intrathoracic stomach. . No obstruction. No gross mural thickening. APPENDIX: Normal appendix. PERITONEUM: Unremarkable. No free fluid. No free air. LYMPH NODES: Unremarkable. No enlarged lymph nodes. BLADDER: Unremarkable. REPRODUCTIVE: Unremarkable. BONES: No acute fracture. OTHER FINDINGS: None. IMPRESSION: Cholelithiasis. Intrathoracic stomach. No evidence of pancreatic lesion. Bilateral pleural thickening with pleural calcification and bibasilar atelectasis. Tortuous thoracic aorta.
[2017-11-17 10:03] LABS: T4 4.6 ug/dL (5.5-11.0)
--- NOTE | 2017-11-17 10:06 | HP ---
HISTORY OF PRESENT ILLNESS: Patient is 61 years old, not a very good historian; however, he was brought to emergency room when sister called ambulance, apparently he passed out. Patient does not give much history. He does claim that he lives in [place] and he has some psychiatric history. He does admit that he has history of seizures and because he is not feeling well, his sister asked him to live with her. So, lately he has been with his sister. PAST MEDICAL HISTORY: Significant for: 1. Schizophrenia. 2. History of hypertension. 3. Some esophageal disorder for that he has surgery done at [facility] in [place]. Patient was noted to have low blood sugar. He was started on D10, but as soon as that was discontinued, his blood sugar dropped again. So, he has been in [facility] for further management. SOCIAL HISTORY: No history of smoking or drinking. No alcohol use. ALLERGIES: HE IS ALLERGIC TO CHLORPROMAZINE, HALOPERIDOL, AND LEVAQUIN. MEDICATION AT HOME: He is on Ativan 2 mg every 4 hours p.r.n., clozapine 100 mg three times a day and 100 mg at bedtime, Nexium 40 mg daily, levothyroxine daily. REVIEW OF SYSTEMS: He looks anxious, able to answer simple questions. PHYSICAL EXAMINATION: VITAL SIGNS: He is afebrile, pulse rate 84, respirations 21, blood pressure 117/65. LUNGS: Bilateral good airflow. No rhonchi or crackle. HEART: S1 and S2 audible. ABDOMEN: Soft, nontender, no rebound, no guarding. NEUROLOGIC: He is awake and alert, able to communicate. LABORATORY DATA: WBC is 9.2, hemoglobin 11, hematocrit 32.6, platelets 280; PTT is 66.1. Chemistry: Sodium 137, potassium 4.1, chloride 101, CO2 of 29, BUN 10, creatinine 0.9, blood sugar of 160. Urinalysis shows positive glucose. Urine tox is unremarkable. MRI of the brain shows normal flow in the sagittal and transverse sinuses. There is no evidence of sinus thrombosis. CT scan of the chest was done that shows emphysematous changes in both lungs and a large bulla in the right lung apex. There is no evidence of pneumothorax and the esophagus is dilated throughout its length secondary to distal stenosis or achalasia. ASSESSMENT: 1. Status post syncope. 2. Persistent hypoglycemia. 3. Schizoaffective disorder. PLAN: We will continue patient on IV fluids. He is currently on D10. I will request Dr. Mcnair for evaluation and I will reach out the family to get further information. Rowdy Tariq MD
--- NOTE | 2017-11-17 12:47 | CP.CCUPN ---
<Curt Gutiérrez - Last Filed: 11/17/17 15:00> CCU Subjective - Physician Review Events Since Last Encounter (Free Text): 11/17/17 12:44 Patient has not had any hypoglycemic episodes whilst on D10 drip. Subjective (Free Text): 11/17/17 12:44 Patient seen and examined at bedside in no acute distress. Patient states he has an appetite and feels fine. Denies fevers, chills, chest pain, abdominal pain, nausea, vomiting, diarrhea. 11/17/17 14:12 Critical Care Time Spent (in minutes): 40 CCU Objective - Vital Signs / Intake & Output Intake and Output (Last 8hrs): Intake & Output 11/16/17 11/17/17 11/17/17 22:59 06:59 14:59 Intake Total 120 Output Total 1974 Balance -1855 Weight 62.505 kg Intake: Oral 120 Output: Urine 1974 Condom 1974 Other: # Voids Condom 1 - Physical Exam Head: Positive for: Atraumatic, Normocephalic Pupils: Positive for: Other (Pupils constricted. ) Extroacular Muscles: Positive for: EOMI Conjunctiva: Positive for: Normal Mouth: Positive for: Moist Mucous Membranes Neck: Positive for: Normal Range of Motion Respiratory/Chest: Positive for: Clear to Auscultation, Good Air Exchange. Negative for: Respiratory Distress, Accessory Muscle Use Cardiovascular: Positive for: Regular Rate and Rhythm, Normal S1, S2. Negative for: Murmurs Abdomen: Negative for: Tenderness, Distention, Peritoneal Signs Back: Positive for: Normal Inspection Upper Extremity: Positive for: Normal Inspection. Negative for: Cyanosis, Edema Lower Extremity: Positive for: Normal Inspection. Negative for: Edema Neurological: Positive for: GCS=15, CN II-XII Intact, Speech Normal Skin: Positive for: Warm, Dry, Normal Color. Negative for: Rashes Psychiatric: Positive for: Alert, Oriented x 3, Normal Insight, Normal Concentration - Medications Active Medications: Active Medications Generic Name Dose Route Start Last Admin Trade Name Freq PRN Reason Stop Dose Admin Albuterol/Ipratropium 3 ml 11/16/17 20:00 11/17/17 07:30 Duoneb 3 Mg/0.5 Mg (3 Ml) Ud IH 3 ml [id number] MAYCO Administration Clozapine 100 mg 11/15/17 14:00 11/17/17 09:19 Clozaril PO 100 mg TID MAYCO Administration Protocol Clozapine 100 mg 11/15/17 22:00 11/16/17 21:45 Clozaril PO 100 mg HS MAYCO Administration Protocol Clozapine 25 mg 11/15/17 22:00 11/16/17 21:47 Clozaril PO 25 mg HS MAYCO Administration Dextrose 500 mls @ 100 mls/hr 11/15/17 12:15 11/17/17 12:13 Dextrose 10% In Water IV 100 mls/hr Q5H MAYCO Administration Levothyroxine Sodium 75 mcg 11/16/17 07:30 11/17/17 09:19 Synthroid PO 75 mcg ACB MAYCO Administration Lorazepam 2 mg 11/15/17 02:35 Ativan IVP Q3H PRN Seizure activity Protocol - Patient Studies Lab Studies: Microbiology Studies 11/15/17 03:30 MRSA Culture (Admit) - Final Naris MRSA NOT DETECTED Lab Studies 11/17/17 11/17/17 11/17/17 Range/Units 11:38 09:25 07:37 Sodium (132-148) mmol/L Potassium (3.6-5.0) mmol/L Chloride (98-107) mmol/L Carbon Dioxide (21-33) mmol/L Anion Gap (10-20) BUN (7-21) mg/dL Creatinine (0.8-1.5) mg/dl Est GFR ( Amer) Est GFR (Non-Af Amer) POC Glucose (mg/dL) 60 L 120 H (65-110) mg/dL Random Glucose (70-110) mg/dL Calcium (8.4-10.5) mg/dL Total Bilirubin (0.2-1.3) mg/dL AST (17-59) U/L ALT (7-56) U/L Alkaline Phosphatase (38-126) U/L Total Protein (5.8-8.3) g/dL Albumin (3.0-4.8) g/dL Globulin gm/dL Albumin/Globulin Ratio (1.1-1.8) Thyroxine (T4) 4.6 L (5.5-11.0) ug/dL TSH 3rd Generation 3.77 (0.46-4.68) mIU/mL 11/17/17 11/16/17 11/16/17 Range/Units 05:20 21:47 15:53 Sodium 135 (132-148) mmol/L Potassium 4.1 (3.6-5.0) mmol/L Chloride 98 (98-107) mmol/L Carbon Dioxide 28 (21-33) mmol/L Anion Gap 13 (10-20) BUN 8 (7-21) mg/dL Creatinine 0.9 (0.8-1.5) mg/dl Est GFR ( Amer) > 60 Est GFR (Non-Af Amer) > 60 POC Glucose (mg/dL) 125 H 130 H (65-110) mg/dL Random Glucose 130 H (70-110) mg/dL Calcium 9.4 (8.4-10.5) mg/dL Total Bilirubin 0.3 (0.2-1.3) mg/dL AST 28 (17-59) U/L ALT 38 (7-56) U/L Alkaline Phosphatase 88 (38-126) U/L Total Protein 7.0 (5.8-8.3) g/dL Albumin 4.0 (3.0-4.8) g/dL Globulin 3.0 gm/dL Albumin/Globulin Ratio 1.3 (1.1-1.8) Thyroxine (T4) (5.5-11.0) ug/dL TSH 3rd Generation (0.46-4.68) mIU/mL Laboratory Results - last 24 hr 11/16/17 11/16/17 11/17/17 15:53 21:47 05:20 Sodium 135 Potassium 4.1 Chloride 98 Carbon Dioxide 28 Anion Gap 13 BUN 8 Creatinine 0.9 Est GFR ( Amer) > 60 Est GFR (Non-Af Amer) > 60 POC Glucose (mg/dL) 130 H 125 H Random Glucose 130 H Calcium 9.4 Total Bilirubin 0.3 AST 28 ALT 38 Alkaline Phosphatase 88 Total Protein 7.0 Albumin 4.0 Globulin 3.0 Albumin/Globulin Ratio 1.3 Thyroxine (T4) TSH 3rd Generation 11/17/17 11/17/17 11/17/17 07:37 09:25 11:38 Sodium Potassium Chloride Carbon Dioxide Anion Gap BUN Creatinine Est GFR ( Amer) Est GFR (Non-Af Amer) POC Glucose (mg/dL) 120 H 60 L Random Glucose Calcium Total Bilirubin AST ALT Alkaline Phosphatase Total Protein Albumin Globulin Albumin/Globulin Ratio Thyroxine (T4) 4.6 L TSH 3rd Generation 3.77 Fingerstick Blood Sugar Results: 60 Review of Systems - Constitutional Constitutional: absent: Fever, Chills, Sweats - EENT Eyes: absent: Change in Vision Ears: absent: Decreased Hearing - Cardiovascular Cardiovascular: absent: Chest Pain, Dyspnea - Respiratory Respiratory: UNREMARKABLE. absent: Cough - Gastrointestinal Gastrointestinal: UNREMARKABLE. absent: Diarrhea, Nausea, Vomiting - Genitourinary Genitourinary: absent: Dysuria - Reproductive: Male Reproductive:Male: UNREMARKABLE - Musculoskeletal Musculoskeletal: UNREMARKABLE - Integumentary Integumentary: UNREMARKABLE - Neurological Neurological: UNREMARKABLE. absent: Dizziness, Numbness - Psychiatric Psychiatric: UNREMARKABLE. absent: Anxiety, Irritability - Endocrine Endocrine: UNREMARKABLE. absent: Excessive Sweating, Fatigue Critical Care Progress Note - Nutrition Nutrition: Nutrition Category Date Time Status Dysphagia/Modified Consistency Diet [DIET] Diets 11/15/17 Lunch Ordered Assessment/Plan - Assessment and Plan (Free Text) Assessment: Patient is a 61 year old male s/p esophagectomy for esophageal erosions in [address] [facility], hypothyroidism, schizophrenia, recurrent hypoglycemia who presented to ED s/p witnessed tonic clonic seizure which was associated with urinary/bowel incontinence secondary to hypoglycemia, upon being admitted to [facility] blood glucose was found to be 32. Patient given amp of D50, started on D5 1/ 2 NS and blood glucose improved to 150s. Patient is currently on D10. Patient has not had any seizures since being admitted. 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) Endocrine -Hypoglycemia due to dumping syndrome s/p esophagectomy erratic meal portions -Continue with D10 -Endocrinology on consult; recommends high protein 6 small meals a day diet -TSH 3.77, continue with synthroid new adjusted dose of 75 mcg -ACTH, C-Peptide, Serum Insulin pending Hematologic -H&H stable at 11.2 & 33.5; continue to monitor DVT prophylaxis: SCDs GI prophylaxis: Protonix Disposition: Patient will be transferred to telemetry pending no evidence of hypoglycemia while on D10 <Nicolas Gage - Last Filed: 11/17/17 15:55> CCU Objective - Vital Signs / Intake & Output Vital Signs (Last 4 hours): Vital Signs Pulse Resp BP Pulse Ox 11/17/17 15:30 73 19 98 11/17/17 15:00 77 23 127/54 L 99 11/17/17 14:30 77 40 H 98 11/17/17 14:00 101/57 L 99 11/17/17 13:30 84 22 97 11/17/17 13:00 88 68 H 102/47 L 97 11/17/17 12:30 88 20 96 11/17/17 12:00 84 41 H 100 Intake and Output (Last 8hrs): Intake & Output 11/17/17 11/17/17 11/17/17 06:59 14:59 22:59 Intake Total 120 Output Total 1974 Balance -1855 Weight 137 lb 12.8 oz Intake: Oral 120 Output: Urine 1974 Condom 1974 Other: # Voids Condom 1 - Medications Active Medications: Active Medications Generic Name Dose Route Start Last Admin Trade Name Freq PRN Reason Stop Dose Admin Albuterol/Ipratropium 3 ml 11/16/17 20:00 11/17/17 13:55 Duoneb 3 Mg/0.5 Mg (3 Ml) Ud IH 3 ml [id number] MAYCO Administration Clozapine 100 mg 11/15/17 14:00 11/17/17 14:20 Clozaril PO 100 mg TID MAYCO Administration Protocol Clozapine 100 mg 11/15/17 22:00 11/16/17 21:45 Clozaril PO 100 mg HS MAYCO Administration Protocol Clozapine 25 mg 11/15/17 22:00 11/16/17 21:47 Clozaril PO 25 mg HS MAYCO Administration Dextrose 500 mls @ 100 mls/hr 11/15/17 12:15 11/17/17 14:17 Dextrose 10% In Water IV Not Given Q5H MAYCO Levothyroxine Sodium 75 mcg 11/16/17 07:30 11/17/17 09:19 Synthroid PO 75 mcg ACB MAYCO Administration Lorazepam 2 mg 11/15/17 02:35 Ativan IVP Q3H PRN Seizure activity Protocol Pantoprazole Sodium 20 mg 11/18/17 06:00 Protonix Ec Tab PO 0600 [facility] - Patient Studies Lab Studies: Microbiology Studies 11/15/17 03:30 MRSA Culture (Admit) - Final Naris MRSA NOT DETECTED Lab Studies 11/17/17 11/17/17 11/17/17 Range/Units 14:23 13:59 12:07 Sodium (132-148) mmol/L Potassium (3.6-5.0) mmol/L Chloride (98-107) mmol/L Carbon Dioxide (21-33) mmol/L Anion Gap (10-20) BUN (7-21) mg/dL Creatinine (0.8-1.5) mg/dl Est GFR ( Amer) Est GFR (Non-Af Amer) POC Glucose (mg/dL) 119 H 36 L* 85 (65-110) mg/dL Random Glucose (70-110) mg/dL Insulin Level (2.0-19.6) uIU/mL Calcium (8.4-10.5) mg/dL Total Bilirubin (0.2-1.3) mg/dL AST (17-59) U/L ALT (7-56) U/L Alkaline Phosphatase (38-126) U/L Total Protein (5.8-8.3) g/dL Albumin (3.0-4.8) g/dL Globulin gm/dL Albumin/Globulin Ratio (1.1-1.8) Thyroxine (T4) (5.5-11.0) ug/dL TSH 3rd Generation (0.46-4.68) mIU/mL 11/17/17 11/17/17 11/17/17 Range/Units 11:38 09:25 07:37 Sodium (132-148) mmol/L Potassium (3.6-5.0) mmol/L Chloride (98-107) mmol/L Carbon Dioxide (21-33) mmol/L Anion Gap (10-20) BUN (7-21) mg/dL Creatinine (0.8-1.5) mg/dl Est GFR ( Amer) Est GFR (Non-Af Amer) POC Glucose (mg/dL) 60 L 120 H (65-110) mg/dL Random Glucose (70-110) mg/dL Insulin Level (2.0-19.6) uIU/mL Calcium (8.4-10.5) mg/dL Total Bilirubin (0.2-1.3) mg/dL AST (17-59) U/L ALT (7-56) U/L Alkaline Phosphatase (38-126) U/L Total Protein (5.8-8.3) g/dL Albumin (3.0-4.8) g/dL Globulin gm/dL Albumin/Globulin Ratio (1.1-1.8) Thyroxine (T4) 4.6 L (5.5-11.0) ug/dL TSH 3rd Generation 3.77 (0.46-4.68) mIU/mL 11/17/17 11/16/17 11/16/17 Range/Units 05:20 21:47 15:53 Sodium 135 (132-148) mmol/L Potassium 4.1 (3.6-5.0) mmol/L Chloride 98 (98-107) mmol/L Carbon Dioxide 28 (21-33) mmol/L Anion Gap 13 (10-20) BUN 8 (7-21) mg/dL Creatinine 0.9 (0.8-1.5) mg/dl Est GFR ( Amer) > 60 Est GFR (Non-Af Amer) > 60 POC Glucose (mg/dL) 125 H 130 H (65-110) mg/dL Random Glucose 130 H (70-110) mg/dL Insulin Level (2.0-19.6) uIU/mL Calcium 9.4 (8.4-10.5) mg/dL Total Bilirubin 0.3 (0.2-1.3) mg/dL AST 28 (17-59) U/L ALT 38 (7-56) U/L Alkaline Phosphatase 88 (38-126) U/L Total Protein 7.0 (5.8-8.3) g/dL Albumin 4.0 (3.0-4.8) g/dL Globulin 3.0 gm/dL Albumin/Globulin Ratio 1.3 (1.1-1.8) Thyroxine (T4) (5.5-11.0) ug/dL TSH 3rd Generation (0.46-4.68) mIU/mL 11/16/17 Range/Units 05:30 Sodium (132-148) mmol/L Potassium (3.6-5.0) mmol/L Chloride (98-107) mmol/L Carbon Dioxide (21-33) mmol/L Anion Gap (10-20) BUN (7-21) mg/dL Creatinine (0.8-1.5) mg/dl Est GFR ( Amer) Est GFR (Non-Af Amer) POC Glucose (mg/dL) (65-110) mg/dL Random Glucose (70-110) mg/dL Insulin Level 6.4 (2.0-19.6) uIU/mL Calcium (8.4-10.5) mg/dL Total Bilirubin (0.2-1.3) mg/dL AST (17-59) U/L ALT (7-56) U/L Alkaline Phosphatase (38-126) U/L Total Protein (5.8-8.3) g/dL Albumin (3.0-4.8) g/dL Globulin gm/dL Albumin/Globulin Ratio (1.1-1.8) Thyroxine (T4) (5.5-11.0) ug/dL TSH 3rd Generation (0.46-4.68) mIU/mL Laboratory Results - last 24 hr 11/16/17 11/16/17 11/16/17 05:30 15:53 21:47 Sodium Potassium Chloride Carbon Dioxide Anion Gap BUN Creatinine Est GFR ( Amer) Est GFR (Non-Af Amer) POC Glucose (mg/dL) 130 H 125 H Random Glucose Insulin Level 6.4 Calcium Total Bilirubin AST ALT Alkaline Phosphatase Total Protein Albumin Globulin Albumin/Globulin Ratio Thyroxine (T4) TSH 3rd Generation 11/17/17 11/17/17 11/17/17 05:20 07:37 09:25 Sodium 135 Potassium 4.1 Chloride 98 Carbon Dioxide 28 Anion Gap 13 BUN 8 Creatinine 0.9 Est GFR ( Amer) > 60 Est GFR (Non-Af Amer) > 60 POC Glucose (mg/dL) 120 H Random Glucose 130 H Insulin Level Calcium 9.4 Total Bilirubin 0.3 AST 28 ALT 38 Alkaline Phosphatase 88 Total Protein 7.0 Albumin 4.0 Globulin 3.0 Albumin/Globulin Ratio 1.3 Thyroxine (T4) 4.6 L TSH 3rd Generation 3.77 11/17/17 11/17/17 11/17/17 11:38 12:07 13:59 Sodium Potassium Chloride Carbon Dioxide Anion Gap BUN Creatinine Est GFR ( Amer) Est GFR (Non-Af Amer) POC Glucose (mg/dL) 60 L 85 36 L* Random Glucose Insulin Level Calcium Total Bilirubin AST ALT Alkaline Phosphatase Total Protein Albumin Globulin Albumin/Globulin Ratio Thyroxine (T4) TSH 3rd Generation 11/17/17 14:23 Sodium Potassium Chloride Carbon Dioxide Anion Gap BUN Creatinine Est GFR ( Amer) Est GFR (Non-Af Amer) POC Glucose (mg/dL) 119 H Random Glucose Insulin Level Calcium Total Bilirubin AST ALT Alkaline Phosphatase Total Protein Albumin Globulin Albumin/Globulin Ratio Thyroxine (T4) TSH 3rd Generation Critical Care Progress Note - Nutrition Nutrition: Nutrition Category Date Time Status Dysphagia/Modified Consistency Diet [DIET] Diets 11/15/17 Lunch Ordered Attending/Attestation - Attestation I have personally seen and examined this patient.: Yes I have fully participated in the care of the patient.: Yes I have reviewed all pertinent clinical information: Yes Notes (Text): 11/17/17 15:50 61 yo male with h/o of esophagectomy in the past, presented with persistent hypoglycemia requiring D10. 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 C-peptide ordered, insulin level, surgical team follows up. Meanwhile patient is asymptomatic, able to eat. Recommended small meals, plenty of fiber, limit simple sugars. No episodes of hypoglycemia on d10. ok to downgrade to tele ccm time 40 min
--- NOTE | 2017-11-17 13:29 | PN ---
DATE: 11/17/2017 SUBJECTIVE: A 61-year-old male with past medical history of schizophrenia and was admitted in the ICU, had a seizure and sitting comfortably, feeling good and continue present management and we will follow up. OBJECTIVE: On examination, the patient is awake and oriented to self. Spontaneous movement of the extremities noted, no problem. No focal findings. IMPRESSION: Seizure. Continue present management. We will follow up. Nate Machado MD
[2017-11-17] MEDS ORDERED: Dextrose 50% SYRINGE Inj (50 ml) ONE (14:01)
--- NOTE | 2017-11-17 16:47 | PN ---
DATE: SUBJECTIVE: The patient is 61 years old, seen and examined, fully awake, alert, oriented, able to communicate. He is mentally challenged. According to nurse, eating well. PHYSICAL EXAMINATION: VITAL SIGNS: He is afebrile, pulse 63, respirations 19, blood pressure 102/69. LUNGS: Bilateral good airflow. No rhonchi or crackle. HEART: S1 and S2 audible. ABDOMEN: Soft, nontender. No rebound, no guarding. NEUROLOGIC: He is awake, alert, oriented, able to communicate. EXTREMITIES: Bilateral leg, no edema. LABORATORY DATA: Blood sugar is 60. CT scan of the abdomen and pelvis was done, which shows cholelithiasis, intrathoracic stomach. No evidence of pancreatic lesion. Bilateral pleural thickening with pleural calcification and bibasilar atelectasis and tortuous thoracic aorta. ASSESSMENT: Syncope secondary to hypoglycemia. Cause of hypoglycemia is not clear. Probably delayed dumping syndrome versus insulinoma, but pancreatic CT is negative. PLAN: The patient will be transferred to telemetry. We will continue him on D10 until we get more information from [facility] and we will continue levothyroxine and continue his psychiatric medication. Rowdy Tariq MD
[2017-11-17] MEDS: Albuterol-Ipratrop 3 mg / 0.5 (3 ml) UD IH PRN (17:49)
--- NOTE | 2017-11-18 00:49 | PN ---
DATE: ENDOCRINOLOGY FOLLOWUP NOTE LOCATION: In CCU 129, room 1. SUBJECTIVE: This is a 61-year-old male with recent worsening episodes of symptomatic hypoglycemia with associated neuroglycopenic and hyperadrenergic manifestations reversed briefly by D50 bolus injections and concurrently has ongoing D10W infusion as given. His serum insulin and C-peptide levels are still pending at this time. A CAT scan of the abdomen showed no pancreatic lesion and the presence of an intrathoracic stomach area as noted. His latest chemistry shows a BUN of 8, sodium 135, potassium 4.1, chloride 98, CO2 of 28, glucose 130, and creatinine 0.9. His glucose all morning ranged from 60 to 85 and 120 mg/dL, but postprandially he developed once again hypoglycemic episode with glucose of 36 mg/dL. This is almost a classical picture of the so called functional hypoglycemia occurring postprandially with hyperinsulinemic surge. He had a previous esophageal surgical procedure and the possibility of a dumping syndrome causing hyperinsulinemia and eventual functional hypoglycemia is very apparent clinically and metabolically as noted thereof. So far, the hormonal assays are pending, but this looks more like a functional type of hypoglycemia rather than dealing with an insulin excess syndrome disorder. Many times course, we have given patient octreotide or Sandostatin injections, but this is a temporary hormonal intervention for hypoglycemia. If he continues to have the aforementioned hypoglycemic dips despite the D10W, we would actually recommend changing to D5W as we should taper him off the dextrose infusions. Then we will consider the administration of Sandostatin injections thereof. We will follow this. Osiris Alvarado MD
[2017-11-18] MEDS: Albuterol-Ipratrop 3 mg / 0.5 (3 ml) UD IH SCH ×4 (01:38→20:00)
--- NOTE | 2017-11-18 04:51 | PN ---
DATE: SUBJECTIVE: This patient was seen and evaluated earlier today. Discussed with Dr. Tariq and also with bellmaker earlier. PHYSICAL EXAMINATION: VITAL SIGNS: Patient remains afebrile, pulse 68, blood pressure is 134/64. HEENT: Atraumatic, anicteric. NECK: Supple. HEART: S1 and S2 heard. LUNGS: Bilateral air entry present. ABDOMEN: Soft. No tenderness. EXTREMITIES: No cyanosis. No clubbing. LABORATORY DATA: Hemoglobin 10.2, hematocrit 32, WBC is 12.1, platelets 238. BUN 36, creatinine 1. IMPRESSION: This is a 61-year-old patient with schizophrenia, had witnessed seizures and hypoglycemia, admitted with seizure disorder probably secondary to the hypoglycemia episodes. The etiology was unclear. The patient did have similar episodes in the past, had an extensive evaluation done in the [facility], still awaiting for the reports. The patient did have esophagectomy with gastric surgery. The patient had a CAT done of the abdomen and pelvis, which showed no pancreatic lesion. Hemoglobin remains stable at 11.2. Patient is on D10 . Hemoglobin stable. The etiology for the seizure disorder is probably secondary to hypoglycemic episode. Likely cause to be a concern in this patient should include delayed dumping syndrome. Endocrinological consult evaluation noticed. Would recommend in this patient small frequent meals. Avoid simple sugars. Consider multiple meals and close followup of titrating the down as the patient can tolerate the p.o. multiple times and if the hemoglobin remains stable. Details are discussed with the patient,s brother in [place] earlier. Felix Mcnair MD
[2017-11-18] MEDS: Pantoprazole 20 mg EC Tab PO SCH (06:28)
--- NOTE | 2017-11-18 06:41 | CON ---
ENDOCRINOLOGY CONSULTATION LOCATION: CCU 129, room 1. HISTORY OF PRESENT ILLNESS: This is a 61-year-old male with known history of hypothyroidism and also underlying schizophrenia and admitted here with an apparent generalized seizure witnessed at home by his brother with supervening marked hypoglycemia and is now being referred for endocrine evaluation and management. PAST MEDICAL HISTORY: As mentioned above, history of chronic schizoaffective disorder with schizophrenia and currently on psychotropic medications; history of hypothyroidism and has been on levothyroxine replacement therapy, the exact dose is unknown at this time; history of hypertension; and dyslipidemia. FAMILY HISTORY: Positive for hypertension and heart disease. SOCIAL HISTORY: Patient has supportive family, has been a previous smoker, but no other illicit drug use at this time. REVIEW OF SYSTEMS: As mentioned above. Admits to generalized body weakness with easy fatigability and tiredness and suboptimal energy level. Also admits to occasional bifrontal headaches with episodic dizziness and lightheadedness. No visual changes noted, otherwise. No chest pains or palpitations. His oral intake has been variable with occasional dyspepsia and has also habitual constipation. PHYSICAL EXAMINATION: GENERAL: An average built male, in no apparent distress. VITAL SIGNS: Blood pressure of 140/80, pulse of 70 beats per minute regular, temperature 98, respirations 20, height is 5 feet 10 inches, weight is 147 pounds. HEENT: Head, normocephalic. Eyes, anicteric with pink conjunctivae. Funduscopy not possible at this time. Ears, nose, and throat otherwise normal. NECK: Supple. No carotid bruits. Thyroid gland shows nodular thyromegaly, but no overt thyroid nodules or cervical adenopathy. HEART: Adynamic precordium. S1, S2 is rapid and regular. LUNGS: Clear to auscultation. ABDOMEN: Flat, soft with positive bowel sounds. EXTREMITIES: No peripheral edema. Pulses are +2 bilaterally. LABORATORY DATA: The chemistries showed a BUN of 10, sodium 137, potassium 4.1, chloride 101, CO2 of 29, glucose 170, and creatinine 0.9. He apparently also had an initial glucose of 32 mg/dL on admission as noted and it was 28 mg/dL done by the paramedics at home. His TSH is 4.72 with a T4 of 5.1 and a free T4 of 0.9. ASSESSMENT: This is a 61-year-old male with an apparent generalized body seizure and supervening symptomatic hypoglycemia with associated neuroglycopenic and hyperadrenergic manifestations of the same. The etiology of the hypoglycemia has yet to be ascertained whether we are dealing with a neuroendocrine disorder versus a nutritional factor since the patient has recent variable oral intake with hypoalbuminemia also at this time. He also has evidence of early hypothyroidism, most likely related to a subtherapeutic levothyroxine regimen and most likely has underlying autoimmune thyroiditis especially with the associated chronic schizoaffective disorder, i.e., schizophrenia. With the intercurrent hypoglycemic episode, we have also to exclude any underlying endocrine disorder or any insulin excess syndromes such as an insulinoma causing the symptomatic hypoglycemic episodes and possibly also triggering a generalized seizure event accordingly. Any brief bout of marked hypoglycemia can trigger a generalized seizure episode thereof. We will also have to exclude any underlying hypoadrenalism causing adrenal insufficiency and a brief bout of hypoglycemia also. PLAN OF MANAGEMENT: We will continue the fingerstick glucose testing at this time, but will not order any coverage scale to observe his glycemic fluctuations, otherwise. We will also obtain a comprehensive hormonal profile to screen for any underlying autoimmune endocrinopathy such as hypoadrenalism as noted and we will obtain a serum cortisol and plasma ACTH level with a repeat comprehensive thyroid hormonal profile and we will adjust his dose regimen accordingly. We will initiate levothyroxine given as 75 mcg once daily before breakfast as ordered. We will also obtain a serum C-peptide and a serum insulin level to screen for any underlying insulin excess syndromes. We will obtain serial chemistries and supplement accordingly as needed. We will also continue the dextrose infusion as ordered. We will follow this. Osiris Alvarado MD
[2017-11-18] MEDS: Levothyroxine 75 MCG TAB PO SCH (08:00)
[2017-11-18 09:35] LABS: BASO # 0.03 K/mm3 (0.0-2.0); BASO % 0.3 % (0.0-3.0); EOS # 0.3 (0.0-0.7); EOS % 3.4 % (1.5-5.0); GRAN # 6.9 (1.4-6.5); HEMOGLOBIN 11.1 g/dL (14.0-18.0); LYMPH # 0.6 (1.2-3.4); LYMPH % 7.4 % (22.0-35.0); MEAN CELL VOLUME 79.8 fl (80.0-105.0); MEAN CORPUSCULAR HEMOGLOBIN 27.1 pg (25.0-35.0); MEAN CORPUSCULAR HGB CONC 33.9 g/dl (31.0-37.0); MEAN PLATELET VOLUME 9.1 fl (7.0-11.0); MONO # 0.8 (0.1-0.6); MONO % 8.9 % (1.0-6.0); RBC 4.1 10^6/uL (3.5-6.1); WHITE BLOOD COUNT 8.6 10^3/ul (4.5-11.0)
[2017-11-18 09:55] LABS: ALB/GLOB RATIO 1.3 (1.1-1.8); ALBUMIN 3.5 g/dL (3.0-4.8); ALT/SGPT 36 U/L (7-56); AST/SGOT 29 U/L (17-59); BLOOD UREA NITROGEN 14 mg/dL (7-21); CALCIUM 8.6 mg/dL (8.4-10.5); GFR AFRICAN-AMERICAN > 60; GFR NON-AFRICAN AMERICAN > 60
[2017-11-18] MEDS ORDERED: POLYETHYLENE GLYCOL 3350 17 GM/Dose PACKET PO SCH (12:45)
[2017-11-18 14:12] LABS: C-PEPTIDE 2.78 ng/mL (0.80-3.85)
--- NOTE | 2017-11-18 17:09 | CP.PCM.PN ---
<Aida George - Last Filed: 11/18/17 17:05> Subjective - Date & Time of Evaluation Date of Evaluation: 11/18/17 Time of Evaluation: 10:45 - Subjective Subjective: Seen and examined at the bedside earlier today, patient was out of bed to chair. Chart was reviewed. Patient denies nausea, vomiting, or abdominal pain. Patient reports he hasn't had a bowel movement for 2 days. Patient reports he is tolerating oral intake. No acute events reported. Objective - Vital Signs/Intake and Output Vital Signs (last 24 hours): Temp Pulse Resp BP Pulse Ox 98.4 F 78 71 H 113/68 93 L 11/17/17 17:29 11/18/17 14:00 11/18/17 13:30 11/18/17 14:00 11/18/17 14:00 - Medications Medications: Current Medications Albuterol/Ipratropium (Duoneb 3 Mg/0.5 Mg (3 Ml) Ud) 3 ml IH [id number] MAYCO Last Admin: 11/18/17 13:21 Dose: 3 ml Albuterol/Ipratropium (Duoneb 3 Mg/0.5 Mg (3 Ml) Ud) 3 ml IH Q2H PRN PRN Reason: Shortness of Breath Last Admin: 11/17/17 17:49 Dose: 3 ml Clozapine (Clozaril) 100 mg PO TID MAYCO PRN Reason: Protocol Last Admin: 11/18/17 13:36 Dose: 100 mg Clozapine (Clozaril) 100 mg PO HS MAYCO PRN Reason: Protocol Last Admin: 11/17/17 22:23 Dose: 100 mg Clozapine (Clozaril) 25 mg PO HS MAYCO Last Admin: 11/17/17 22:23 Dose: 25 mg Dextrose (Dextrose 5% In Water) 500 mls @ 100 mls/hr IV .Q5H MAYCO Last Admin: 11/18/17 13:39 Dose: 100 mls/hr Levothyroxine Sodium (Synthroid) 75 mcg PO ACB MAYCO Last Admin: 11/18/17 08:00 Dose: 75 mcg Lorazepam (Ativan) 2 mg IVP Q3H PRN; Protocol PRN Reason: Seizure activity Pantoprazole Sodium (Protonix Ec Tab) 20 mg PO 0600 MAYCO Last Admin: 11/18/17 06:28 Dose: 20 mg Polyethylene Glycol (Miralax) 17 gm PO DAILY MAYCO Last Admin: 11/18/17 13:36 Dose: 17 gm Sodium Chloride ([place] Nasal [place]) 0 ml NS DAILY PRN PRN Reason: Nasal congestion Last Admin: 11/18/17 10:59 Dose: 2 sprays - Labs Labs: 11/18/17 09:00 11/18/17 09:00 PT 11.3 SECONDS (9.4-12.5) 11/14/17 22:56 INR 0.99 (0.93-1.08) 11/14/17 22:56 APTT 31.1 Seconds (25.1-36.5) 11/16/17 05:30 - Constitutional Appears: No Acute Distress - Head Exam Head Exam: NORMOCEPHALIC - Eye Exam Eye Exam: Normal appearance. absent: Scleral icterus - ENT Exam ENT Exam: Mucous Membranes Moist - Neck Exam Neck Exam: Normal Inspection - Respiratory Exam Respiratory Exam: NORMAL BREATHING PATTERN. absent: Respiratory Distress - Cardiovascular Exam Cardiovascular Exam: +S1, +S2 - GI/Abdominal Exam GI & Abdominal Exam: Soft, Normal Bowel Sounds. absent: Guarding, Tenderness, Organomegaly, Rebound - Extremities Exam Extremities Exam: absent: Calf Tenderness - Neurological Exam Neurological Exam: Alert, Awake, Oriented x3 - Skin Skin Exam: Dry, Warm Assessment and Plan - Assessment and Plan (Free Text) Assessment: Assessment: Hypoglycemia, rule out dumping syndrome, status post CT scanno evidence of pancreatic lesion Constipation Seizure disorder Syncope likely secondary to hypoglycemia Schizophrenia Plan: Start patient on MiraLAX daily Diet as tolerated On D5W Endocrinology follow-up Continue PPI, on Protonix 20 mg daily Seen and examined with Dr. Mcnair <Felix Mcnair V - Last Filed: 11/19/17 00:04> Objective - Vital Signs/Intake and Output Vital Signs (last 24 hours): Temp Pulse Resp BP Pulse Ox 98.3 F 84 26 H 127/73 94 L 11/18/17 21:25 11/18/17 23:00 11/18/17 23:00 11/18/17 23:00 11/18/17 23:00 Intake and Output: 11/18/17 11/19/17 18:59 06:59 Intake Total 2280 Output Total 2125 Balance 155 - Medications Medications: Current Medications Albuterol/Ipratropium (Duoneb 3 Mg/0.5 Mg (3 Ml) Ud) 3 ml IH [id number] MAYCO Last Admin: 11/18/17 20:00 Dose: 3 ml Albuterol/Ipratropium (Duoneb 3 Mg/0.5 Mg (3 Ml) Ud) 3 ml IH Q2H PRN PRN Reason: Shortness of Breath Last Admin: 11/17/17 17:49 Dose: 3 ml Clozapine (Clozaril) 100 mg PO TID MAYCO PRN Reason: Protocol Last Admin: 11/18/17 17:20 Dose: 100 mg Clozapine (Clozaril) 100 mg PO HS MAYCO PRN Reason: Protocol Last Admin: 11/18/17 21:11 Dose: 100 mg Clozapine (Clozaril) 25 mg PO HS MAYCO Last Admin: 11/18/17 21:12 Dose: 25 mg Dextrose (Dextrose 5% In Water 1000 Ml) 1,000 mls @ 50 mls/hr IV .Q20H MAYCO Last Admin: 11/18/17 23:22 Dose: 50 mls/hr Levothyroxine Sodium (Synthroid) 75 mcg PO ACB MAYCO Last Admin: 11/18/17 08:00 Dose: 75 mcg Lorazepam (Ativan) 2 mg IVP Q3H PRN; Protocol PRN Reason: Seizure activity Pantoprazole Sodium (Protonix Ec Tab) 20 mg PO 0600 MAYCO Last Admin: 11/18/17 06:28 Dose: 20 mg Polyethylene Glycol (Miralax) 17 gm PO DAILY MAYCO Last Admin: 11/18/17 13:36 Dose: 17 gm Sodium Chloride ([place] Nasal [place]) 0 ml NS DAILY PRN PRN Reason: Nasal congestion Last Admin: 11/18/17 10:59 Dose: 2 sprays - Labs Labs: 11/18/17 09:00 11/18/17 09:00 PT 11.3 SECONDS (9.4-12.5) 11/14/17 22:56 INR 0.99 (0.93-1.08) 11/14/17 22:56 APTT 31.1 Seconds (25.1-36.5) 11/16/17 05:30 Attending/Attestation - Attestation I have personally seen and examined this patient.: Yes I have fully participated in the care of the patient.: Yes I have reviewed all pertinent clinical information, including history, physical exam and plan: Yes Notes (Text): This is an addendum to GI progress report dictated by Aida George APN.The patient was seen and examined earlier. Medical records, lab studies, imagings were reviewed. Last 24 hours events reviewed. Agreed with the above treatment plan as outlined in Aida George APN's notes the with the addition of the following this patient was seen and evaluated earlier. Abdomen soft no tenderness tolerating diet. Dietary advice was gi possible related to dumping syndrome Awaiting the records from [facility] 11/19/17 00:01
--- NOTE | 2017-11-18 19:15 | PN ---
DATE: ENDOCRINOLOGY FOLLOWUP NOTE LOCATION: CCU 129, room 1. SUBJECTIVE: This is a 61-year-old male presenting here with generalized seizures and also concomitant pneumothorax and currently being followed closely for hemodynamic monitoring and also metabolic management because of marked hypoglycemic episodes despite D10W infusion as given since admission. He has since then been switched over to D5W which is really a tapering down of the dextrose infusion and we will observe his metabolic response in terms of his glycemic fluctuations as noted thereof. His latest glucose levels today have ranged from 121-137 and 98 mg/dL. It was 107-163 and 138 at bedtime last night. His latest chemistry showed a BUN of 14, sodium 125, potassium 4.2, chloride 93, CO2 of 24, glucose 138, and creatinine 0.9. He also has overt hypothyroidism and the latest TSH is 3.77 with a T4 of 4.6 as noted. We will continue the modified and higher dosing of the levothyroxine given as 75 mcg once daily in the morning as ordered. We will continue the D5W and taper down the infusion if possible today as noted and observe his glycemic fluctuations thereof. We are at this point dealing with the so-called functional hypoglycemia with most postprandial related hypoglycemic episodes as noted. The serum insulin and C-peptide levels are still pending at this time, so we are not fully excluding the possibility of the more rare insulin excess syndromes as noted thereof. We will obtain serial chemistries and supplement accordingly as needed. We will also consider the addition of octreotide or Sandostatin injections given subcutaneously either twice a day or every 8 hours as indicated if marked hypoglycemic episodes supervening as the dextrose infusion is discontinued. We will obtain serial chemistries and supplement accordingly as needed. We will follow. Osiris Alvarado MD
[2017-11-18] MEDS ORDERED: DiphenhydrAMINE 50 mg/ml Inj IVP STA (21:47)
--- NOTE | 2017-11-18 23:03 | PN ---
DATE: SUBJECTIVE: Patient is a 61 years old, seen and examined, sitting in chair, seems to be comfortable. Just finished eating his lunch. PHYSICAL EXAMINATION: VITAL SIGNS: He is afebrile, pulse 78, respiration 20, blood pressure 134/66. LUNGS: Bilateral fair airflow. No rhonchi or crackle. HEART: S1, S2 audible. ABDOMEN: Soft. No rebound, no guarding. NEUROLOGIC: He is awake and alert. He is mentally slow; however, able to carry on conversation. LABORATORY EXAM: WBC is 8.6, hemoglobin 11.1, hematocrit 32.7, platelets of 250. Chemistry: Sodium 125, potassium 4.2, chloride 93, CO2 of 24, BUN 14, creatinine 0.9, blood sugar of 137. ASSESSMENT: 1. Status post syncope secondary to hypoglycemia, probably dumping syndrome. 2. History of seizure disorder secondary to hypoglycemia. 3. Mentally challenged. 4. History of schizophrenia. 5. History of esophageal surgeries, etiology unknown; however, he had partial gastric resection. PLAN: We will cut down IV D10 and has been started on D5W. Patient's oral intake is fair. We will reduce IV flow to 50 mL per hour. Rowdy Tariq MD
[2017-11-19] MEDS: Albuterol-Ipratrop 3 mg / 0.5 (3 ml) UD IH SCH ×4 (01:10→20:00)
[2017-11-19] MEDS: Pantoprazole 20 mg EC Tab PO SCH (05:14)
[2017-11-19 07:19] LABS: T4 4.5 ug/dL (5.5-11.0)
[2017-11-19 07:22] LABS: ALB/GLOB RATIO 1.3 (1.1-1.8); ALBUMIN 3.6 g/dL (3.0-4.8); ALT/SGPT 42 U/L (7-56); AST/SGOT 38 U/L (17-59); BLOOD UREA NITROGEN 19 mg/dL (7-21); CALCIUM 8.4 mg/dL (8.4-10.5); GFR AFRICAN-AMERICAN > 60; GFR NON-AFRICAN AMERICAN > 60
[2017-11-19] MEDS: Levothyroxine 75 MCG TAB PO SCH (08:19)
--- NOTE | 2017-11-19 10:08 | CP.PCM.PN ---
Subjective - Date & Time of Evaluation Date of Evaluation: 11/19/17 Time of Evaluation: 10:05 - Subjective Subjective: PGY-2 (House Doc) for Dr. Tariq CC: Na @ 121 Mr Benavidez, 61 year old man, with a history of Leg DVT, schizophrenia, remote history of esophagectomy and hypothyroidism who presented with questionable seizure-like activity and recurrent hypoglycemia (FS as low as 29). CT of head and neck done in the ED showed possible air in the cavernous sinus and a possible small loculated pneumothorax. The possible air finding in the cavernous sinus noted on CT-scan, which can be due to thrombus, ICU started therapeutic Heparin drip and has stopped it. ICU has deferred to the primary team to obtain records from [facility]. For recurrent hypoglycemia, pt is started on D5W at 50cc/hr. Pt has retractable vomiting throughout the night with abdominal pain. Zofran PRN was started. Pt is on protonix PO daily and miralax BID. PE Gen: dry mucosa, NAD Heart: regular, s1, s2, murmur Pulm: CTA b/l, no w/r/r Abd: soft, distended, BS hypoactive, palpable pain on hypogastric area LE: no edema. Negative farheen signs Assessmnet: Hyponatremia likely dehydration from intractable vomiting due to dumping syndrome Abdominal pain likely constipation (good appetite) - GI team: R/O impaction, obstruction, ileus. Pending flat plate - stop D5W - start D5/NS@50 - Pending Osm, Uosm, FeNa - Left message to Dr. Tariq answering service with my call back number Objective - Vital Signs/Intake and Output Vital Signs (last 24 hours): Temp Pulse Resp BP Pulse Ox 98.1 F 88 35 H 131/69 96 11/19/17 01:47 11/19/17 06:00 11/19/17 06:00 11/19/17 06:00 11/19/17 06:00 Intake and Output: 11/19/17 11/19/17 06:59 18:59 Intake Total 750 Output Total 1000 Balance -250 - Medications Medications: Current Medications Albuterol/Ipratropium (Duoneb 3 Mg/0.5 Mg (3 Ml) Ud) 3 ml IH [id number] MAYCO Last Admin: 11/19/17 08:14 Dose: 3 ml Albuterol/Ipratropium (Duoneb 3 Mg/0.5 Mg (3 Ml) Ud) 3 ml IH Q2H PRN PRN Reason: Shortness of Breath Last Admin: 11/17/17 17:49 Dose: 3 ml Clozapine (Clozaril) 100 mg PO TID MAYCO PRN Reason: Protocol Last Admin: 11/18/17 17:20 Dose: 100 mg Clozapine (Clozaril) 100 mg PO HS MAYCO PRN Reason: Protocol Last Admin: 11/18/17 21:11 Dose: 100 mg Clozapine (Clozaril) 25 mg PO HS MAYCO Last Admin: 11/18/17 21:12 Dose: 25 mg Dextrose/Sodium Chloride (Dextrose 5%/0.9% Ns 1000 Ml) 1,000 mls @ 50 mls/hr IV .Q20H MAYCO Levothyroxine Sodium (Synthroid) 75 mcg PO ACB MAYCO Last Admin: 11/19/17 08:19 Dose: Not Given Lorazepam (Ativan) 2 mg IVP Q3H PRN; Protocol PRN Reason: Seizure activity Ondansetron HCl (Zofran Inj) 4 mg IVP Q4H PRN PRN Reason: Nausea/Vomiting Last Admin: 11/19/17 05:14 Dose: 4 mg Pantoprazole Sodium (Protonix Ec Tab) 20 mg PO 0600 MAYCO Last Admin: 11/19/17 05:14 Dose: 20 mg Polyethylene Glycol (Miralax) 17 gm PO BID MAYCO Sodium Chloride ([place] Nasal [place]) 0 ml NS DAILY PRN PRN Reason: Nasal congestion Last Admin: 11/18/17 10:59 Dose: 2 sprays - Labs Labs: 11/18/17 09:00 11/19/17 05:00 PT 11.3 SECONDS (9.4-12.5) 11/14/17 22:56 INR 0.99 (0.93-1.08) 11/14/17 22:56 APTT 31.1 Seconds (25.1-36.5) 11/16/17 05:30
[2017-11-19] MEDS: Dextrose 5%/0.9% NS 1,000 ML IV SCH (10:12)
--- NOTE | 2017-11-19 12:49 | RAD ---
HISTORY: n/v/abd distension/constipation/r/o obstruction COMPARISON: November 17, 2017 CT abdomen and pelvis FINDINGS: BOWEL: Edematous small bowel with thumbprinting. Nondistended colon with contrast from recent CT stent identified. BONES: Normal. OTHER FINDINGS: Right lower lobe infiltrate. Calcifications either in the periphery of the right lung or pleural based IMPRESSION: Dilated edematous loops of small bowel. No visible air.
--- NOTE | 2017-11-19 16:02 | CP.PCM.PN ---
<Aida George - Last Filed: 11/19/17 16:00> Subjective - Date & Time of Evaluation Date of Evaluation: 11/19/17 Time of Evaluation: 10:00 - Subjective Subjective: Seen and examined at the bedside earlier today, chart was reviewed. Patient complaining of nausea and reported to have vomited this morning. Patient still have no bowel movement complain of abdominal bloating. Patient reports passing gas. Objective - Vital Signs/Intake and Output Vital Signs (last 24 hours): Temp Pulse Resp BP Pulse Ox 98.1 F 79 21 112/56 L 97 11/19/17 01:47 11/19/17 12:00 11/19/17 12:00 11/19/17 12:00 11/19/17 10:00 Intake and Output: 11/19/17 11/19/17 06:59 18:59 Intake Total 750 Output Total 1000 Balance -250 - Medications Medications: Current Medications Albuterol/Ipratropium (Duoneb 3 Mg/0.5 Mg (3 Ml) Ud) 3 ml IH [id number] MAYCO Last Admin: 11/19/17 13:18 Dose: 3 ml Albuterol/Ipratropium (Duoneb 3 Mg/0.5 Mg (3 Ml) Ud) 3 ml IH Q2H PRN PRN Reason: Shortness of Breath Last Admin: 11/17/17 17:49 Dose: 3 ml Clozapine (Clozaril) 100 mg PO TID MAYCO PRN Reason: Protocol Last Admin: 11/19/17 11:10 Dose: 100 mg Clozapine (Clozaril) 100 mg PO HS MAYCO PRN Reason: Protocol Last Admin: 11/18/17 21:11 Dose: 100 mg Clozapine (Clozaril) 25 mg PO HS MAYCO Last Admin: 11/18/17 21:12 Dose: 25 mg Dextrose/Sodium Chloride (Dextrose 5%/0.9% Ns 1000 Ml) 1,000 mls @ 50 mls/hr IV .Q20H MAYCO Last Admin: 11/19/17 10:12 Dose: 50 mls/hr Levothyroxine Sodium (Synthroid) 75 mcg PO ACB MAYCO Last Admin: 11/19/17 08:19 Dose: Not Given Lorazepam (Ativan) 2 mg IVP Q3H PRN; Protocol PRN Reason: Seizure activity Ondansetron HCl (Zofran Inj) 4 mg IVP Q4H PRN PRN Reason: Nausea/Vomiting Last Admin: 11/19/17 05:14 Dose: 4 mg Pantoprazole Sodium (Protonix Ec Tab) 20 mg PO 0600 MAYCO Last Admin: 11/19/17 05:14 Dose: 20 mg Polyethylene Glycol (Miralax) 17 gm PO BID MAYCO Sodium Chloride ([place] Nasal [place]) 0 ml NS DAILY PRN PRN Reason: Nasal congestion Last Admin: 11/18/17 10:59 Dose: 2 sprays - Labs Labs: 11/18/17 09:00 11/19/17 05:00 PT 11.3 SECONDS (9.4-12.5) 11/14/17 22:56 INR 0.99 (0.93-1.08) 11/14/17 22:56 APTT 31.1 Seconds (25.1-36.5) 11/16/17 05:30 - Constitutional Appears: No Acute Distress - Head Exam Head Exam: NORMOCEPHALIC - Eye Exam Eye Exam: Normal appearance. absent: Scleral icterus - ENT Exam ENT Exam: Mucous Membranes Moist - Neck Exam Neck Exam: Normal Inspection - Respiratory Exam Respiratory Exam: NORMAL BREATHING PATTERN. absent: Respiratory Distress - Cardiovascular Exam Cardiovascular Exam: +S1, +S2 - GI/Abdominal Exam GI & Abdominal Exam: Distended, Soft, Tenderness (mild), Hypoactive Bowel Sounds. absent: Rigid, Rebound - Extremities Exam Extremities Exam: absent: Calf Tenderness - Neurological Exam Neurological Exam: Alert, Awake, Oriented x3 - Skin Skin Exam: Dry, Warm Assessment and Plan - Assessment and Plan (Free Text) Assessment: Assessment: Nausea/vomiting/abdominal distention, rule out bowel obstruction Hyponatremia Hypoglycemia, rule out dumping syndrome, status post CT scan no evidence of pancreatic lesion Constipation Seizure disorder Syncope likely secondary to hypoglycemia Schizophrenia Plan: Change diet to clear liquid Request for abdominal x-ray Give Dulcolax suppository On D5W with 0.9NS Endocrinology follow-up Continue PPI, on Protonix 20 mg daily Discuss case with Dr. Tariq and nursing staff Seen and examined with Dr. Mcnair <Felix Mcnair V - Last Filed: 11/19/17 21:34> Objective - Vital Signs/Intake and Output Vital Signs (last 24 hours): Temp Pulse Resp BP Pulse Ox 98.1 F 74 21 119/66 97 11/19/17 16:30 11/19/17 19:00 11/19/17 18:00 11/19/17 19:00 11/19/17 10:00 Intake and Output: 11/19/17 11/20/17 18:59 06:59 Intake Total 500 Output Total 1150 Balance -650 - Medications Medications: Current Medications Albuterol/Ipratropium (Duoneb 3 Mg/0.5 Mg (3 Ml) Ud) 3 ml IH [id number] MAYCO Last Admin: 11/19/17 20:00 Dose: 3 ml Albuterol/Ipratropium (Duoneb 3 Mg/0.5 Mg (3 Ml) Ud) 3 ml IH Q2H PRN PRN Reason: Shortness of Breath Last Admin: 11/17/17 17:49 Dose: 3 ml Clozapine (Clozaril) 100 mg PO TID MAYCO PRN Reason: Protocol Last Admin: 11/19/17 18:51 Dose: 100 mg Clozapine (Clozaril) 100 mg PO HS MAYCO PRN Reason: Protocol Last Admin: 11/18/17 21:11 Dose: 100 mg Clozapine (Clozaril) 25 mg PO HS MAYCO Last Admin: 11/18/17 21:12 Dose: 25 mg Dextrose/Sodium Chloride (Dextrose 5%/0.9% Ns 1000 Ml) 1,000 mls @ 50 mls/hr IV .Q20H MAYCO Last Admin: 11/19/17 10:12 Dose: 50 mls/hr Levothyroxine Sodium (Synthroid) 75 mcg PO ACB MAYCO Last Admin: 11/19/17 08:19 Dose: Not Given Lorazepam (Ativan) 2 mg IVP Q3H PRN; Protocol PRN Reason: Seizure activity Ondansetron HCl (Zofran Inj) 4 mg IVP Q4H PRN PRN Reason: Nausea/Vomiting Last Admin: 11/19/17 05:14 Dose: 4 mg Pantoprazole Sodium (Protonix Ec Tab) 20 mg PO 0600 MAYCO Last Admin: 11/19/17 05:14 Dose: 20 mg Polyethylene Glycol (Miralax) 17 gm PO BID MAYCO Last Admin: 11/19/17 18:51 Dose: Not Given Sodium Chloride ([place] Nasal [place]) 0 ml NS DAILY PRN PRN Reason: Nasal congestion Last Admin: 11/18/17 10:59 Dose: 2 sprays - Labs Labs: 11/18/17 09:00 11/19/17 05:00 PT 11.3 SECONDS (9.4-12.5) 11/14/17 22:56 INR 0.99 (0.93-1.08) 11/14/17 22:56 APTT 31.1 Seconds (25.1-36.5) 11/16/17 05:30 Attending/Attestation - Attestation I have personally seen and examined this patient.: Yes I have fully participated in the care of the patient.: Yes I have reviewed all pertinent clinical information, including history, physical exam and plan: Yes Notes (Text): This is an addendum to GI progress report dictated by Aida George APN.The patient was seen and examined earlier. Medical records, lab studies, imagings were reviewed. Last 24 hours events reviewed. Agreed with the above treatment plan as outlined in Aida George APN's notes the with the addition of the following patient had 2 episodes of vomiting earli On examination abdomen wa no tenderness on D5 half normal saline. Abdominal x-ray results of the distended small bowel loops Would request CT of the abdomen and pelvis Patient did have bowel movements before probable late dumping sy vs insulinoma C prograde and insulin levels pending 11/19/17 21:30
--- NOTE | 2017-11-19 16:38 | PN ---
DATE: SUBJECTIVE: Patient is 61 years old, seen and examined, had episode of vomiting yesterday and this morning. Also, complained of not having bowel movements for 5 days. Complained of headache. PHYSICAL EXAMINATION: VITAL SIGNS: He is afebrile, pulse 83, respirations 21, blood pressure 112/56. LUNGS: Bilateral fair airflow. No rhonchi or crackle. HEART: S1, S2 audible. ABDOMEN: Soft. Abdomen is a little distended. Bowel sounds are positive. EXTREMITIES: Bilateral legs, no edema. LABORATORY EXAM: WBC is 8.6, hemoglobin 11, hematocrit 32.7, and platelets of 250. Chemistry: Blood sugar is 161. Sodium 121, potassium 5, chloride 86, CO2 of 27. BUN 19, creatinine 0.9. Blood sugar of 154. Had flat plate of x-ray of abdomen done showed dilated edematous loop of small bowel, no visible air. ASSESSMENT: 1. Syncope secondary to hypoglycemia. 2. History of partial gastric resection. 3. Partial small bowel obstruction. 4. Intractable nausea. 5. Hyponatremia. PLAN: We will keep patient n.p.o. We will give him IV fluids and give him one dose of Dulcolax suppository. Monitor his electrolytes. We will follow up this patient. Rowdy Tariq MD
[2017-11-19] MEDS: POLYETHYLENE GLYCOL 3350 17 GM/Dose PACKET PO SCH ×2 (17:14→18:51)
--- NOTE | 2017-11-19 21:43 | CT ---
EXAM: CT Abdomen and Pelvis Without Intravenous Contrast EXAM DATE/TIME: 11/19/2017 6:54 PM CLINICAL HISTORY: The patient age is 61 years old and is male; Signs and symptoms; Other: R/O obstruction Facility exam id and description: Ct abdpelscon abd pelvis w/o po or iv cont TECHNIQUE: Axial computed tomography images of the abdomen and pelvis without intravenous contrast. All CT scans at this facility use one or more dose reduction techniques, viz.: automated exposure control; ma/kV adjustment per patient size (including targeted exams where dose is matched to indication; i.e. head); or iterative reconstruction technique. Coronal and sagittal reformatted images were created and reviewed. COMPARISON: CT - ABD PELVIS PO IV CONTRAST 2017-11-17 08:36 FINDINGS: Lung bases: Interstitial and patchy airspace disease is identified within both lower lobes as well as the right middle lobe. This has progressed. This may be infectious or inflammatory in etiology. Pleural space: Bilateral pleural thickening is again visualized, with pleural calcification on the right side. Pleural calcification can be associated with asbestos exposure. ABDOMEN: Liver: Unremarkable. No mass. Gallbladder and bile ducts: A few small hyperdense calcified gallstones are visualized. Pancreas: Normal contour. No ductal dilation. Spleen: No splenomegaly. Adrenals: No mass. Kidneys and ureters: No obstructing stones. No hydronephrosis. Stomach and bowel: Dilated small bowel loops are identified with air fluid levels, suggestive of obstruction. Contrast and significant fecal material are visualized within the colon. There is a large hiatal hernia versus gastric pull-up again visualized. Appendix: No findings to suggest acute appendicitis. PELVIS: Bladder: No stones. Reproductive: There is a tiny calcification within the prostate. ABDOMEN and PELVIS: Intraperitoneal space: No free air. Bones/joints: Hypertrophic degenerative changes are noted within the spine. There is a small nonspecific sclerotic lesion within the anterior right acetabulum. Vasculature: There is atherosclerotic calcification of the abdominal aorta and iliac arteries. No abdominal aortic aneurysm. Lymph nodes: No enlarged lymph nodes. IMPRESSION: 1. Dilated small bowel loops are identified with air fluid levels, suggestive of obstruction. Contrast and significant fecal material are visualized within the colon. 2. Interstitial and patchy airspace disease is identified within both lower lobes as well as the right middle lobe. This has progressed. This may be infectious or inflammatory in etiology. 3. Bilateral pleural thickening is again visualized, with pleural calcification on the right side. Pleural calcification can be associated with asbestos exposure. 4. There is a large hiatal hernia versus gastric pull-up again visualized. 5. Cholelithiasis. 6. Incidental/non-acute findings are described above.
[2017-11-20] MEDS: Albuterol-Ipratrop 3 mg / 0.5 (3 ml) UD IH SCH ×4 (01:50→22:29)
--- NOTE | 2017-11-20 01:57 | PN ---
DATE: ENDOCRINOLOGY FOLLOWUP NOTE LOCATION: In CCU room 129, 1. SUBJECTIVE: This is a 61-year-old male with recent seizure disorder and concomitant symptomatic hypoglycemia, and is now being followed closely for metabolic management. He also has overt hypothyroidism, currently on levothyroxine replacement therapy as given. His latest glucose values are fluctuating, but improved, and have ranged from 135 to 144 and 161 mg/dL. His latest chemistry showed a BUN of 19, sodium 121, potassium 5.0, chloride 86, CO2 of 27, glucose 154, and creatinine 0.9. ASSESSMENT AND PLAN: We have changed his IVs to D5 normal saline infusion as given for the presence of euvolemic hyponatremia, most likely also precipitated by the dextrose infusion given as free water for the management of symptomatic hypoglycemia. We will also titrate his levothyroxine because of the presence of persistent subclinical hypothyroidism and increase the levothyroxine to 88 mcg once daily before breakfast as ordered. We will titrate incrementally as indicated to optimize metabolic control. We are waiting the reports of the thyroid antibodies, which will confirm and/or indicate the presence of underlying thyroid autoimmunity. We will obtain serial chemistries and supplement accordingly as needed. We will follow the patient. Osiris Alvarado MD
[2017-11-20] MEDS: Dextrose 5%/0.9% NS 1,000 ML IV SCH (05:41)
[2017-11-20] MEDS: Pantoprazole 20 mg EC Tab PO SCH (06:16)
[2017-11-20 07:08] LABS: BASO # 0.01 K/mm3 (0.0-2.0); BASO % 0.3 % (0.0-3.0); EOS # 0.1 (0.0-0.7); GRAN # 2.45 (1.4-6.5); GRAN % 71.1 % (50.0-68.0); LYMPH # 0.6 (1.2-3.4); LYMPH % 16.5 % (22.0-35.0); MEAN CELL VOLUME 79.6 fl (80.0-105.0); MEAN CORPUSCULAR HEMOGLOBIN 26.7 pg (25.0-35.0); MEAN CORPUSCULAR HGB CONC 33.5 g/dl (31.0-37.0); MEAN PLATELET VOLUME 9.4 fl (7.0-11.0); MONO # 0.4 (0.1-0.6); MONO % 10.1 % (1.0-6.0); RBC 4.12 10^6/uL (3.5-6.1); RED CELL DISTRIBUTION WIDTH 16.1 % (11.5-14.5); WHITE BLOOD COUNT 3.5 10^3/ul (4.5-11.0)
[2017-11-20 07:15] LABS: ALB/GLOB RATIO 1.2 (1.1-1.8); ALBUMIN 3.3 g/dL (3.0-4.8); ALT/SGPT 39 U/L (7-56); AST/SGOT 32 U/L (17-59); BLOOD UREA NITROGEN 14 mg/dL (7-21); CALCIUM 8.4 mg/dL (8.4-10.5); GFR AFRICAN-AMERICAN > 60; GFR NON-AFRICAN AMERICAN > 60
[2017-11-20] MEDS: Albuterol-Ipratrop 3 mg / 0.5 (3 ml) UD IH PRN (09:53)
[2017-11-20] MEDS: POLYETHYLENE GLYCOL 3350 17 GM/Dose PACKET PO SCH ×2 (10:16→19:09)
[2017-11-20] MEDS: Levothyroxine 88 MCG TAB PO SCH (10:20)
--- NOTE | 2017-11-20 10:50 | CP.PCM.CON ---
<Facundo Murrell Kelsey - Last Filed: 11/20/17 11:00> Past Patient History - Infectious Disease Hx of Infectious Diseases: None - Past Social History Smoking Status: Former Smoker - CARDIAC Hx Hypertension: Yes - PULMONARY Hx Bronchitis: No Hx Chronic Obstructive Pulmonary Disease (COPD): No - NEUROLOGICAL Hx Neurological Disorder: No Hx Alzheimer's Disease: No HX Cerebrovascular Accident: No Hx Dementia: No - HEENT Hx HEENT Problems: No Hx Blind: No Hx Cataracts: No Hx Deafness: No Hx Difficulty Chewing: Yes Hx Glaucoma: No Hx Macular Degeneration: No - ENDOCRINE/METABOLIC Hx Hypothyroidism: Yes - HEMATOLOGICAL/ONCOLOGICAL Hx Blood Disorders: No Hx AIDS: No Hx Anemia: No Hx Cancer: No Hx Chemotherapy: No Hx Human Immunodeficiency Virus (HIV): No Hx Unexplained Bleeding: No - INTEGUMENTARY Hx Dermatological Problems: No Hx Basil Cell: No Hx Eczema: No Hx Melanoma: No Hx Psoriasis: No Hx Squamous Cell: No - MUSCULOSKELETAL/RHEUMATOLOGICAL Hx Falls: No - PSYCHIATRIC Hx Psychophysiologic Disorder: Yes Hx Substance Use: No - SURGICAL HISTORY Other/Comment: Throat and intestinal surgery - ANESTHESIA Hx Anesthesia: Yes Hx Anesthesia Reactions: No Hx Malignant Hyperthermia: No Meds Allergies/Adverse Reactions: Allergies Allergy/AdvReac Type Severity Reaction Status Date / Time chlorpromazine AdvReac SHORTNESS Verified 11/14/17 22:07 [From Thorazine] OF BREATH haloperidol [From Haldol] AdvReac ANAPHYLAXIS Verified 11/14/17 22:07 levofloxacin [From Levaquin] AdvReac ANGIOEDEMA Verified 11/14/17 22:07 - Medications Medications: Current Medications Albuterol/Ipratropium (Duoneb 3 Mg/0.5 Mg (3 Ml) Ud) 3 ml IH [id number] [facility] Last Admin: 11/20/17 07:24 Dose: 3 ml Albuterol/Ipratropium (Duoneb 3 Mg/0.5 Mg (3 Ml) Ud) 3 ml IH Q2H PRN PRN Reason: Shortness of Breath Last Admin: 11/20/17 09:53 Dose: 3 ml Clozapine (Clozaril) 100 mg PO TID [facility] PRN Reason: Protocol Last Admin: 11/20/17 10:20 Dose: 100 mg Clozapine (Clozaril) 100 mg PO HS [facility] PRN Reason: Protocol Last Admin: 11/19/17 22:37 Dose: 100 mg Clozapine (Clozaril) 25 mg PO HS [facility] Last Admin: 11/19/17 22:37 Dose: 25 mg Dextrose/Sodium Chloride (Dextrose 5%/0.9% Ns 1000 Ml) 1,000 mls @ 50 mls/hr IV .Q20H [facility] Last Admin: 11/20/17 05:41 Dose: 50 mls/hr Levothyroxine Sodium (Synthroid) 88 mcg PO ACB [facility] Last Admin: 11/20/17 10:20 Dose: 88 mcg Lorazepam (Ativan) 2 mg IVP Q3H PRN; Protocol PRN Reason: Seizure activity Ondansetron HCl (Zofran Inj) 4 mg IVP Q4H PRN PRN Reason: Nausea/Vomiting Last Admin: 11/19/17 05:14 Dose: 4 mg Pantoprazole Sodium (Protonix Ec Tab) 20 mg PO 0600 [facility] Last Admin: 11/20/17 06:16 Dose: 20 mg Polyethylene Glycol (Miralax) 17 gm PO BID [facility] Last Admin: 11/20/17 10:16 Dose: Not Given Sodium Chloride ([place] Nasal [place]) 0 ml NS DAILY PRN PRN Reason: Nasal congestion Last Admin: 11/18/17 10:59 Dose: 2 sprays Results - Vital Signs Recent Vital Signs: Last Vital Signs Temp 99.6 F 11/20/17 04:00 Pulse 88 11/20/17 10:00 Resp 41 H 11/20/17 10:00 BP 113/47 L 11/20/17 10:00 Pulse Ox 92 L 11/20/17 10:00 - Labs Result Diagrams: 11/20/17 05:50 11/20/17 05:50 Labs: Laboratory Results - last 24 hr 11/19/17 11/19/17 11/19/17 07:00 11:14 15:59 WBC RBC Hgb Hct MCV MCH MCHC RDW Plt Count MPV Gran % Lymph % (Auto) Taylor % (Auto) Eos % (Auto) Baso % (Auto) Gran # Lymph # (Auto) Taylor # (Auto) Eos # (Auto) Baso # (Auto) Sodium Potassium Chloride Carbon Dioxide Anion Gap BUN Creatinine Est GFR ( Amer) Est GFR (Non-Af Amer) POC Glucose (mg/dL) 161 H 144 H Random Glucose Serum Osmolality 260 L Calcium Total Bilirubin AST ALT Alkaline Phosphatase Total Protein Albumin Globulin Albumin/Globulin Ratio 11/19/17 11/20/17 11/20/17 21:42 05:50 05:50 WBC 3.5 L D RBC 4.12 Hgb 11.0 L Hct 32.8 L MCV 79.6 L MCH 26.7 MCHC 33.5 RDW 16.1 H Plt Count 302 MPV 9.4 Gran % 71.1 H Lymph % (Auto) 16.5 L Taylor % (Auto) 10.1 H Eos % (Auto) 2.0 Baso % (Auto) 0.3 Gran # 2.45 Lymph # (Auto) 0.6 L Taylor # (Auto) 0.4 Eos # (Auto) 0.1 Baso # (Auto) 0.01 Sodium 129 L Potassium 4.7 Chloride 93 L Carbon Dioxide 30 Anion Gap 11 BUN 14 Creatinine 0.9 Est GFR ( Amer) > 60 Est GFR (Non-Af Amer) > 60 POC Glucose (mg/dL) 135 H Random Glucose 134 H Serum Osmolality Calcium 8.4 Total Bilirubin 0.4 AST 32 ALT 39 Alkaline Phosphatase 80 Total Protein 6.1 Albumin 3.3 Globulin 2.8 Albumin/Globulin Ratio 1.2 11/20/17 07:20 WBC RBC Hgb Hct MCV MCH MCHC RDW Plt Count MPV Gran % Lymph % (Auto) Taylor % (Auto) Eos % (Auto) Baso % (Auto) Gran # Lymph # (Auto) Taylor # (Auto) Eos # (Auto) Baso # (Auto) Sodium Potassium Chloride Carbon Dioxide Anion Gap BUN Creatinine Est GFR ( Amer) Est GFR (Non-Af Amer) POC Glucose (mg/dL) 133 H Random Glucose Serum Osmolality Calcium Total Bilirubin AST ALT Alkaline Phosphatase Total Protein Albumin Globulin Albumin/Globulin Ratio Assessment & Plan - Assessment and Plan (Free Text) Assessment: 61M admitted for seizures, surgery consulted for SBO Plan: N/V has resolved pt has CT scan demonstrating contrast in the colon had large bowel movement after suppository yesterday likely constipated and not obstructed will order tap water w/ soap enema Q4H until pt cleared out d/w Dr Mikhail Murrell, PGY3 <Narendra Elizondo - Last Filed: 11/20/17 11:24> Meds - Medications Medications: Current Medications Albuterol/Ipratropium (Duoneb 3 Mg/0.5 Mg (3 Ml) Ud) 3 ml IH [id number] [facility] Last Admin: 11/20/17 07:24 Dose: 3 ml Albuterol/Ipratropium (Duoneb 3 Mg/0.5 Mg (3 Ml) Ud) 3 ml IH Q2H PRN PRN Reason: Shortness of Breath Last Admin: 11/20/17 09:53 Dose: 3 ml Clozapine (Clozaril) 100 mg PO TID [facility] PRN Reason: Protocol Last Admin: 11/20/17 10:20 Dose: 100 mg Clozapine (Clozaril) 100 mg PO HS [facility] PRN Reason: Protocol Last Admin: 11/19/17 22:37 Dose: 100 mg Clozapine (Clozaril) 25 mg PO HS [facility] Last Admin: 11/19/17 22:37 Dose: 25 mg Dextrose/Sodium Chloride (Dextrose 5%/0.9% Ns 1000 Ml) 1,000 mls @ 50 mls/hr IV .Q20H [facility] Last Admin: 11/20/17 05:41 Dose: 50 mls/hr Levothyroxine Sodium (Synthroid) 88 mcg PO ACB [facility] Last Admin: 11/20/17 10:20 Dose: 88 mcg Lorazepam (Ativan) 2 mg IVP Q3H PRN; Protocol PRN Reason: Seizure activity Ondansetron HCl (Zofran Inj) 4 mg IVP Q4H PRN PRN Reason: Nausea/Vomiting Last Admin: 11/19/17 05:14 Dose: 4 mg Pantoprazole Sodium (Protonix Ec Tab) 20 mg PO 0600 [facility] Last Admin: 11/20/17 06:16 Dose: 20 mg Polyethylene Glycol (Miralax) 17 gm PO BID [facility] Last Admin: 11/20/17 10:16 Dose: Not Given Sodium Chloride ([place] Nasal [place]) 0 ml NS DAILY PRN PRN Reason: Nasal congestion Last Admin: 11/18/17 10:59 Dose: 2 sprays Results - Vital Signs Recent Vital Signs: Last Vital Signs Temp 100 F H 11/20/17 08:00 Pulse 88 11/20/17 10:00 Resp 41 H 11/20/17 10:00 BP 113/47 L 11/20/17 10:00 Pulse Ox 92 L 11/20/17 10:00 - Labs Result Diagrams: 11/20/17 05:50 11/20/17 05:50 Labs: Laboratory Results - last 24 hr 11/19/17 11/19/17 11/19/17 07:00 11:14 15:59 WBC RBC Hgb Hct MCV MCH MCHC RDW Plt Count MPV Gran % Lymph % (Auto) Taylor % (Auto) Eos % (Auto) Baso % (Auto) Gran # Lymph # (Auto) Taylor # (Auto) Eos # (Auto) Baso # (Auto) Sodium Potassium Chloride Carbon Dioxide Anion Gap BUN Creatinine Est GFR ( Amer) Est GFR (Non-Af Amer) POC Glucose (mg/dL) 161 H 144 H Random Glucose Serum Osmolality 260 L Calcium Total Bilirubin AST ALT Alkaline Phosphatase Total Protein Albumin Globulin Albumin/Globulin Ratio 11/19/17 11/20/17 11/20/17 21:42 05:50 05:50 WBC 3.5 L D RBC 4.12 Hgb 11.0 L Hct 32.8 L MCV 79.6 L MCH 26.7 MCHC 33.5 RDW 16.1 H Plt Count 302 MPV 9.4 Gran % 71.1 H Lymph % (Auto) 16.5 L Taylor % (Auto) 10.1 H Eos % (Auto) 2.0 Baso % (Auto) 0.3 Gran # 2.45 Lymph # (Auto) 0.6 L Taylor # (Auto) 0.4 Eos # (Auto) 0.1 Baso # (Auto) 0.01 Sodium 129 L Potassium 4.7 Chloride 93 L Carbon Dioxide 30 Anion Gap 11 BUN 14 Creatinine 0.9 Est GFR ( Amer) > 60 Est GFR (Non-Af Amer) > 60 POC Glucose (mg/dL) 135 H Random Glucose 134 H Serum Osmolality Calcium 8.4 Total Bilirubin 0.4 AST 32 ALT 39 Alkaline Phosphatase 80 Total Protein 6.1 Albumin 3.3 Globulin 2.8 Albumin/Globulin Ratio 1.2 11/20/17 07:20 WBC RBC Hgb Hct MCV MCH MCHC RDW Plt Count MPV Gran % Lymph % (Auto) Taylor % (Auto) Eos % (Auto) Baso % (Auto) Gran # Lymph # (Auto) Taylor # (Auto) Eos # (Auto) Baso # (Auto) Sodium Potassium Chloride Carbon Dioxide Anion Gap BUN Creatinine Est GFR ( Amer) Est GFR (Non-Af Amer) POC Glucose (mg/dL) 133 H Random Glucose Serum Osmolality Calcium Total Bilirubin AST ALT Alkaline Phosphatase Total Protein Albumin Globulin Albumin/Globulin Ratio Assessment & Plan - Assessment and Plan (Free Text) Assessment: Dx Ileus Not PSBO Schizophrenia Ashkan SSE again(Pt comfortable) No surgery recommended This consult done under my direct supervision Jane Elizondo MD FACS
--- NOTE | 2017-11-20 18:22 | CP.PCM.PN ---
<Aida George - Last Filed: 11/20/17 18:21> Subjective - Date & Time of Evaluation Date of Evaluation: 11/20/17 Time of Evaluation: 09:45 - Subjective Subjective: Seen and examined at the bedside earlier today, chart review. Patient reports he had multiple bowel movements. Patient no report of nausea, vomiting , shortness of breath or chest pain at this time but vomited last night, no hematemesis. Not much abdominal pain. Had abdominal x-ray showing dilated loops of the bowel, CT scan was done for further evaluation and suggestive of obstruction, large hiatus hernia vs gastric pull up and gallstones. No hypogylcemic episodes. Objective - Vital Signs/Intake and Output Vital Signs (last 24 hours): Temp Pulse Resp BP Pulse Ox 98.9 F 84 18 106/61 95 11/20/17 14:00 11/20/17 14:00 11/20/17 14:00 11/20/17 14:00 11/20/17 14:00 Intake and Output: 11/20/17 11/20/17 06:59 18:59 Intake Total 700 Output Total 1150 Balance -450 - Medications Medications: Current Medications Albuterol/Ipratropium (Duoneb 3 Mg/0.5 Mg (3 Ml) Ud) 3 ml IH [id number] [facility] Last Admin: 11/20/17 13:20 Dose: 3 ml Albuterol/Ipratropium (Duoneb 3 Mg/0.5 Mg (3 Ml) Ud) 3 ml IH Q2H PRN PRN Reason: Shortness of Breath Last Admin: 11/20/17 09:53 Dose: 3 ml Clozapine (Clozaril) 100 mg PO TID [facility] PRN Reason: Protocol Last Admin: 11/20/17 14:40 Dose: 100 mg Clozapine (Clozaril) 100 mg PO HS [facility] PRN Reason: Protocol Last Admin: 11/19/17 22:37 Dose: 100 mg Clozapine (Clozaril) 25 mg PO HS [facility] Last Admin: 11/19/17 22:37 Dose: 25 mg Dextrose/Sodium Chloride (Dextrose 5%/0.9% Ns 1000 Ml) 1,000 mls @ 50 mls/hr IV .Q20H [facility] Last Admin: 11/20/17 05:41 Dose: 50 mls/hr Levothyroxine Sodium (Synthroid) 88 mcg PO ACB [facility] Last Admin: 11/20/17 10:20 Dose: 88 mcg Lorazepam (Ativan) 2 mg IVP Q3H PRN; Protocol PRN Reason: Seizure activity Ondansetron HCl (Zofran Inj) 4 mg IVP Q4H PRN PRN Reason: Nausea/Vomiting Last Admin: 11/19/17 05:14 Dose: 4 mg Pantoprazole Sodium (Protonix Ec Tab) 20 mg PO 0600 [facility] Last Admin: 11/20/17 06:16 Dose: 20 mg Polyethylene Glycol (Miralax) 17 gm PO BID [facility] Last Admin: 11/20/17 10:16 Dose: Not Given Sodium Chloride ([place] Nasal [place]) 0 ml NS DAILY PRN PRN Reason: Nasal congestion Last Admin: 11/18/17 10:59 Dose: 2 sprays - Labs Labs: 11/20/17 05:50 11/20/17 05:50 PT 11.3 SECONDS (9.4-12.5) 11/14/17 22:56 INR 0.99 (0.93-1.08) 11/14/17 22:56 APTT 31.1 Seconds (25.1-36.5) 11/16/17 05:30 - Constitutional Appears: No Acute Distress - Head Exam Head Exam: NORMOCEPHALIC - Eye Exam Eye Exam: Normal appearance. absent: Scleral icterus - ENT Exam ENT Exam: Mucous Membranes Moist - Respiratory Exam Respiratory Exam: NORMAL BREATHING PATTERN. absent: Respiratory Distress - Cardiovascular Exam Cardiovascular Exam: +S1, +S2 - GI/Abdominal Exam GI & Abdominal Exam: Distended, Soft, Normal Bowel Sounds. absent: Guarding, Tenderness, Rebound - Extremities Exam Extremities Exam: absent: Calf Tenderness, Pedal Edema - Neurological Exam Neurological Exam: Alert, Awake, Oriented x3 - Skin Skin Exam: Dry, Warm Assessment and Plan - Assessment and Plan (Free Text) Assessment: Assessment: Nausea/vomiting/abdominal distention, s/p ct scan, findings suggestive of obstruction, HH vs gastric pull up Hyponatremia Hypoglycemia, rule out dumping syndrome, status post CT scan no evidence of pancreatic lesion Constipation Seizure disorder Syncope likely secondary to hypoglycemia Schizophrenia Plan: NPO On D5W with 0.9NS surgical evaluation monitor electrolytes Continue PPI, on Protonix 20 mg daily Seen and examined with Dr. Mcnair <Tabby,Kovil V - Last Filed: 11/20/17 23:48> Objective - Vital Signs/Intake and Output Vital Signs (last 24 hours): Temp Pulse Resp BP Pulse Ox 98.9 F 84 18 106/61 95 11/20/17 14:00 11/20/17 14:00 11/20/17 14:00 11/20/17 14:00 11/20/17 14:00 Intake and Output: 11/20/17 11/21/17 18:59 06:59 Intake Total 0 Output Total 0 Balance 0 - Medications Medications: Current Medications Albuterol/Ipratropium (Duoneb 3 Mg/0.5 Mg (3 Ml) Ud) 3 ml IH [id number] [facility] Last Admin: 11/20/17 22:29 Dose: 3 ml Albuterol/Ipratropium (Duoneb 3 Mg/0.5 Mg (3 Ml) Ud) 3 ml IH Q2H PRN PRN Reason: Shortness of Breath Last Admin: 11/20/17 09:53 Dose: 3 ml Clozapine (Clozaril) 100 mg PO TID [facility] PRN Reason: Protocol Last Admin: 11/20/17 19:09 Dose: 100 mg Clozapine (Clozaril) 25 mg PO HS [facility] Last Admin: 11/20/17 23:20 Dose: 25 mg Clozapine (Clozaril) 100 mg PO HS [facility] PRN Reason: Protocol Dextrose/Sodium Chloride (Dextrose 5%/0.9% Ns 1000 Ml) 1,000 mls @ 50 mls/hr IV .Q20H [facility] Last Admin: 11/20/17 05:41 Dose: 50 mls/hr Levothyroxine Sodium (Synthroid) 88 mcg PO ACB [facility] Last Admin: 11/20/17 10:20 Dose: 88 mcg Lorazepam (Ativan) 2 mg IVP Q3H PRN; Protocol PRN Reason: Seizure activity Ondansetron HCl (Zofran Inj) 4 mg IVP Q4H PRN PRN Reason: Nausea/Vomiting Last Admin: 11/19/17 05:14 Dose: 4 mg Pantoprazole Sodium (Protonix Ec Tab) 20 mg PO 0600 [facility] Last Admin: 11/20/17 06:16 Dose: 20 mg Polyethylene Glycol (Miralax) 17 gm PO BID [facility] Last Admin: 11/20/17 19:09 Dose: Not Given Sodium Chloride ([place] Nasal [place]) 0 ml NS DAILY PRN PRN Reason: Nasal congestion Last Admin: 11/18/17 10:59 Dose: 2 sprays - Labs Labs: 11/20/17 05:50 11/20/17 05:50 PT 11.3 SECONDS (9.4-12.5) 11/14/17 22:56 INR 0.99 (0.93-1.08) 11/14/17 22:56 APTT 31.1 Seconds (25.1-36.5) 11/16/17 05:30 Attending/Attestation - Attestation I have personally seen and examined this patient.: Yes I have fully participated in the care of the patient.: Yes I have reviewed all pertinent clinical information, including history, physical exam and plan: Yes Notes (Text): This is an addendum to GI progress report dictated by Aida George APN.The patient was seen and examined earlier. Medical records, lab studies, imagings were reviewed. Last 24 hours events reviewed. Agreed with the above treatment plan as outlined in Aida George APN's notes the with the addition of the following 11/20/17 23:48
--- NOTE | 2017-11-20 18:51 | PN ---
DATE: SUBJECTIVE: The patient is 61 years old, seen and examined. He was ambulating with physical therapist with a walker. He states he had bowel movement last night. He was given tap water enema with no results. He still looks distended, did not vomit this morning. PHYSICAL EXAMINATION VITAL SIGNS: He is afebrile, pulse 84, respirations 18, blood pressure 106/61. LUNGS: Bilateral fair airflow. No rhonchi or crackle. HEART: S1 and S2 audible. ABDOMEN: Distended. Bowel sounds are positive. EXTREMITIES: Bilateral leg, no edema. NEUROLOGICAL: He is awake and alert, mentally slow. LABORATORY DATA: WBC is 3.5, hemoglobin 11, hematocrit 32.8, platelets 302. Chemistry: Sodium 129, potassium 4.7, chloride 93, CO2 30, BUN 14, creatinine 0.9, blood sugar of 144. The patient had CT scan of the abdomen and pelvis done that shows dilated small bowel loops with air fluid level suggestive of obstruction, interstitial and patchy airspace disease in the lower lobes as well as right middle lobe. Bilateral pleural thickening. There is large hiatal hernia versus gastric pull-up along with cholelithiasis. ASSESSMENT: 1. Partial small bowel obstruction. 2. Constipation. 3. History of previous esophageal surgeries with gastric pull-up procedure. 4. Mentally challenged. 5. Status post syncope secondary to hypoglycemia. 6. History of schizophrenia. PLAN: We will keep the patient n.p.o. We will give IV fluid and enema will be repeated. Monitor his blood sugar. Continue his psychiatric medications. Follow up his electrolyte in a.m. Rowdy Tariq MD
--- NOTE | 2017-11-21 02:35 | PN ---
DATE: ENDOCRINOLOGY FOLLOWUP NOTE LOCATIONS: In room 575. SUBJECTIVE: This is a 61-year-old male with recent symptomatic hypoglycemia and has since then improved clinically and metabolically as noted thereof. He is currently on D5 normal saline infusion for recent hyponatremia and has also improved metabolically as noted. LABORATORY DATA: The latest chemistries today showed a BUN of 14, sodium 129, potassium 4.7, chloride 93, CO2 of 30, glucose 134 and creatinine 0.9. His glucose values are also fluctuating, but improved and have ranged from 130 to 133 and 151 mg/dL. So, his latest thyroid studies, which also showed a T4 of 4.6 with a TSH of 3.77 indicative of subclinical hypothyroidism. PLAN OF MANAGEMENT: So, at this time, we will continue the modified levothyroxine given at a higher dose of 88 mcg once daily in the morning as ordered. We will obtain serial chemistries and supplement accordingly as needed. We will also obtain serial thyroid studies and titrate his dose regimen accordingly. We will continue the high-protein diet with 6 small feedings as ordered to prevent further bouts of functional hypoglycemia as noted. We will follow. Osiris Alvarado MD
[2017-11-21] MEDS: Dextrose 5%/0.9% NS 1,000 ML IV SCH (03:00)
[2017-11-21] MEDS: Pantoprazole 20 mg EC Tab PO SCH (06:00)
[2017-11-21 07:02] LABS: BASO # 0.04 K/mm3 (0.0-2.0); BASO % 0.6 % (0.0-3.0); EOS # 0.2 (0.0-0.7); EOS % 2.9 % (1.5-5.0); GRAN # 4.43 (1.4-6.5); GRAN % 67.3 % (50.0-68.0); HEMOGLOBIN 10.2 g/dL (14.0-18.0); LYMPH # 0.8 (1.2-3.4); MEAN CELL VOLUME 80.4 fl (80.0-105.0); MEAN CORPUSCULAR HGB CONC 33.6 g/dl (31.0-37.0); MEAN PLATELET VOLUME 8.8 fl (7.0-11.0); MONO # 1.1 (0.1-0.6); MONO % 17.2 % (1.0-6.0); RBC 3.78 10^6/uL (3.5-6.1); RED CELL DISTRIBUTION WIDTH 16.3 % (11.5-14.5); WHITE BLOOD COUNT 6.6 10^3/ul (4.5-11.0)
[2017-11-21 07:18] LABS: ALB/GLOB RATIO 1.1 (1.1-1.8); ALT/SGPT 42 U/L (7-56); AST/SGOT 31 U/L (17-59); BLOOD UREA NITROGEN 11 mg/dL (7-21); CALCIUM 8.2 mg/dL (8.4-10.5); GFR AFRICAN-AMERICAN > 60; GFR NON-AFRICAN AMERICAN > 60
--- NOTE | 2017-11-21 07:32 | CP.PCM.PN ---
Subjective - Date & Time of Evaluation Date of Evaluation: 11/21/17 Time of Evaluation: 07:28 - Subjective Subjective: General Surgery: Dr Elizondo Pt S&E. Now out of ICU on 5th floor. Pt reports he has had multiple BMs. Passing flatus. Per nursing enemas just returning clear water now. Pt states he has no further n/v or abdominal pain. Requesting food. Objective - Vital Signs/Intake and Output Vital Signs (last 24 hours): Temp Pulse Resp BP Pulse Ox 98.9 F 80 18 105/61 94 L 11/20/17 22:00 11/20/17 22:00 11/20/17 22:00 11/20/17 22:00 11/20/17 22:00 Intake and Output: 11/21/17 11/21/17 06:59 18:59 Intake Total 0 Output Total 400 Balance -400 - Medications Medications: Current Medications Albuterol/Ipratropium (Duoneb 3 Mg/0.5 Mg (3 Ml) Ud) 3 ml IH [id number] [facility] Last Admin: 11/20/17 22:29 Dose: 3 ml Albuterol/Ipratropium (Duoneb 3 Mg/0.5 Mg (3 Ml) Ud) 3 ml IH Q2H PRN PRN Reason: Shortness of Breath Last Admin: 11/20/17 09:53 Dose: 3 ml Clozapine (Clozaril) 100 mg PO TID [facility] PRN Reason: Protocol Last Admin: 11/20/17 19:09 Dose: 100 mg Clozapine (Clozaril) 25 mg PO HS [facility] Last Admin: 11/20/17 23:20 Dose: 25 mg Clozapine (Clozaril) 100 mg PO HS [facility] PRN Reason: Protocol Dextrose/Sodium Chloride (Dextrose 5%/0.9% Ns 1000 Ml) 1,000 mls @ 50 mls/hr IV .Q20H [facility] Last Admin: 11/21/17 03:00 Dose: 50 mls/hr Levothyroxine Sodium (Synthroid) 88 mcg PO ACB [facility] Last Admin: 11/20/17 10:20 Dose: 88 mcg Lorazepam (Ativan) 2 mg IVP Q3H PRN; Protocol PRN Reason: Seizure activity Ondansetron HCl (Zofran Inj) 4 mg IVP Q4H PRN PRN Reason: Nausea/Vomiting Last Admin: 11/19/17 05:14 Dose: 4 mg Pantoprazole Sodium (Protonix Ec Tab) 20 mg PO 0600 [facility] Last Admin: 11/21/17 06:00 Dose: 20 mg Polyethylene Glycol (Miralax) 17 gm PO BID [facility] Last Admin: 11/20/17 19:09 Dose: Not Given Sodium Chloride ([place] Nasal [place]) 0 ml NS DAILY PRN PRN Reason: Nasal congestion Last Admin: 11/18/17 10:59 Dose: 2 sprays - Labs Labs: 11/21/17 06:40 11/21/17 06:40 PT 11.3 SECONDS (9.4-12.5) 11/14/17 22:56 INR 0.99 (0.93-1.08) 11/14/17 22:56 APTT 31.1 Seconds (25.1-36.5) 11/16/17 05:30 - Constitutional Appears: Non-toxic, No Acute Distress - ENT Exam ENT Exam: Mucous Membranes Moist - Respiratory Exam Respiratory Exam: absent: Accessory Muscle Use, Respiratory Distress - Cardiovascular Exam Cardiovascular Exam: REGULAR RHYTHM. absent: Tachycardia - GI/Abdominal Exam GI & Abdominal Exam: Soft. absent: Distended, Firm, Guarding, Rigid, Tenderness Additional comments: mildly distended - Neurological Exam Neurological Exam: Alert, Awake - Psychiatric Exam Psychiatric exam: Normal Affect, Normal Mood - Skin Skin Exam: Normal Color, Warm Assessment and Plan - Assessment and Plan (Free Text) Assessment: 61M admitted for seizures; surgery consulted for sbo; resolving Plan: pt having Bms and passing flatus will stop enemas trial CLD ambulate d/w Dr Mikhail Murrell, PGY3
[2017-11-21] MEDS: Albuterol-Ipratrop 3 mg / 0.5 (3 ml) UD IH SCH ×3 (07:47→19:58)
[2017-11-21] MEDS: Levothyroxine 88 MCG TAB PO SCH (11:03)
[2017-11-21] MEDS: POLYETHYLENE GLYCOL 3350 17 GM/Dose PACKET PO SCH ×2 (11:04→17:04)
--- NOTE | 2017-11-21 11:31 | CP.PCM.PN ---
Subjective - Date & Time of Evaluation Date of Evaluation: 11/21/17 Time of Evaluation: 08:30 - Subjective Subjective: Seen and examined at the bedside earlier today, chart was reviewed. Patient denies nausea, vomiting, or abdominal pain. Status post tap water enema in the a.m., with cleared small particle return as per nursing. No reports of bleeding. Patient consuming clear liquid diet with no complaints. Objective - Vital Signs/Intake and Output Vital Signs (last 24 hours): Temp Pulse Resp BP Pulse Ox 98 F 74 20 115/66 96 11/21/17 08:08 11/21/17 08:08 11/21/17 08:08 11/21/17 08:08 11/21/17 08:08 Intake and Output: 11/21/17 11/21/17 06:59 18:59 Intake Total 0 Output Total 400 Balance -400 - Medications Medications: Current Medications Albuterol/Ipratropium (Duoneb 3 Mg/0.5 Mg (3 Ml) Ud) 3 ml IH [id number] ON LICENSE OF [facility] Last Admin: 11/21/17 07:47 Dose: 3 ml Albuterol/Ipratropium (Duoneb 3 Mg/0.5 Mg (3 Ml) Ud) 3 ml IH Q2H PRN PRN Reason: Shortness of Breath Last Admin: 11/20/17 09:53 Dose: 3 ml Clozapine (Clozaril) 100 mg PO TID [facility] PRN Reason: Protocol Last Admin: 11/21/17 11:03 Dose: 100 mg Clozapine (Clozaril) 25 mg PO HS ON LICENSE OF [facility] Last Admin: 11/20/17 23:20 Dose: 25 mg Clozapine (Clozaril) 100 mg PO HS [facility] PRN Reason: Protocol Docusate Sodium (Colace) 100 mg PO TID [facility] Last Admin: 11/21/17 11:03 Dose: 100 mg Dextrose/Sodium Chloride (Dextrose 5%/0.9% Ns 1000 Ml) 1,000 mls @ 50 mls/hr IV .Q20H [facility] Last Admin: 11/21/17 03:00 Dose: 50 mls/hr Levothyroxine Sodium (Synthroid) 88 mcg PO ACB ON LICENSE OF [facility] Last Admin: 11/21/17 11:03 Dose: 88 mcg Lorazepam (Ativan) 2 mg IVP Q3H PRN; Protocol PRN Reason: Seizure activity Ondansetron HCl (Zofran Inj) 4 mg IVP Q4H PRN PRN Reason: Nausea/Vomiting Last Admin: 11/19/17 05:14 Dose: 4 mg Pantoprazole Sodium (Protonix Ec Tab) 20 mg PO 0600 ON LICENSE OF [facility] Last Admin: 11/21/17 06:00 Dose: 20 mg Polyethylene Glycol (Miralax) 17 gm PO BID ON LICENSE OF [facility] Last Admin: 11/21/17 11:04 Dose: 17 gm Sodium Chloride ([place] Nasal [place]) 0 ml NS DAILY PRN PRN Reason: Nasal congestion Last Admin: 11/18/17 10:59 Dose: 2 sprays - Labs Labs: 11/21/17 06:40 11/21/17 06:40 PT 11.3 SECONDS (9.4-12.5) 11/14/17 22:56 INR 0.99 (0.93-1.08) 11/14/17 22:56 APTT 31.1 Seconds (25.1-36.5) 11/16/17 05:30 - Constitutional Appears: No Acute Distress - Head Exam Head Exam: NORMOCEPHALIC - Eye Exam Eye Exam: Normal appearance. absent: Scleral icterus - ENT Exam ENT Exam: Mucous Membranes Moist - Neck Exam Neck Exam: Normal Inspection - Respiratory Exam Respiratory Exam: NORMAL BREATHING PATTERN. absent: Respiratory Distress - Cardiovascular Exam Cardiovascular Exam: +S1, +S2 - GI/Abdominal Exam GI & Abdominal Exam: Soft, Normal Bowel Sounds. absent: Distended, Guarding ( history), Tenderness, Rebound - Extremities Exam Extremities Exam: absent: Calf Tenderness - Neurological Exam Neurological Exam: Alert, Awake, Oriented x3 - Skin Skin Exam: Dry, Warm Assessment and Plan - Assessment and Plan (Free Text) Assessment: Assessment: S/P Nausea/vomiting/abdominal distention, s/p ct scan, findings suggestive of obstruction, HH vs gastric pull upis patient is Hyponatremia Hypoglycemia, rule out dumping syndrome, status post CT scan no evidence of pancreatic lesion Constipation Seizure disorder Syncope likely secondary to hypoglycemia Schizophrenia Plan: on clear liquid diet On D5W with 0.9NS monitor electrolytes Continue PPI, on Protonix 20 mg daily bowel regimine: Miralax BID/started on Colace TID surgery following no plans sx Seen and examined with Dr. Mcnair
[2017-11-21 17:54] LABS: CREATININE,RANDOM URINE 60 mg/dL
[2017-11-22] MEDS: Albuterol-Ipratrop 3 mg / 0.5 (3 ml) UD IH SCH ×4 (02:59→22:51)
[2017-11-22] MEDS: Pantoprazole 20 mg EC Tab PO SCH (05:13)
[2017-11-22 08:43] LABS: BASO # 0.05 K/mm3 (0.0-2.0); BASO % 0.7 % (0.0-3.0); EOS # 0.2 (0.0-0.7); EOS % 2.8 % (1.5-5.0); GRAN # 4.45 (1.4-6.5); GRAN % 64.9 % (50.0-68.0); HEMOGLOBIN 10.5 g/dL (14.0-18.0); LYMPH # 0.7 (1.2-3.4); LYMPH % 10.5 % (22.0-35.0); MEAN CELL VOLUME 80.7 fl (80.0-105.0); MEAN CORPUSCULAR HEMOGLOBIN 26.7 pg (25.0-35.0); MEAN CORPUSCULAR HGB CONC 33.1 g/dl (31.0-37.0); MONO # 1.5 (0.1-0.6); MONO % 21.1 % (1.0-6.0); PLATELET COUNT 269 10^3/uL (120.0-450.0); RBC 3.93 10^6/uL (3.5-6.1); RED CELL DISTRIBUTION WIDTH 16.1 % (11.5-14.5); WHITE BLOOD COUNT 6.9 10^3/ul (4.5-11.0)
[2017-11-22 08:58] LABS: ALB/GLOB RATIO 1.2 (1.1-1.8); ALBUMIN 3.1 g/dL (3.0-4.8); ALT/SGPT 79 U/L (7-56); AST/SGOT 70 U/L (17-59); BLOOD UREA NITROGEN 8 mg/dL (7-21); GFR AFRICAN-AMERICAN > 60; GFR NON-AFRICAN AMERICAN > 60
[2017-11-22 09:11] LABS: T4 4.2 ug/dL (5.5-11.0)
[2017-11-22 10:02] LABS: NEUTROPHIL 66 % (50.0-70.0)
[2017-11-22 10:03] LABS: ATYPICAL LYMPHOCYTE 3 % (0.0-0.0); EOSINOPHIL 2 % (0.0-3.0); MYELOCYTE 1 %
[2017-11-22 10:04] LABS: LYMPHOCYTE 11 % (22.0-35.0); MONOCYTE 17 % (1.0-6.0); PLATELET ESTIMATE NORMAL (NORMAL)
[2017-11-22 10:05] LABS: ANISOCYTOSIS 1+; HYPOCHROMIA 1+; MICROCYTOSIS 1+
[2017-11-22] MEDS: POLYETHYLENE GLYCOL 3350 17 GM/Dose PACKET PO SCH ×2 (10:33→17:41)
[2017-11-22] MEDS: Levothyroxine 88 MCG TAB PO SCH (10:34)
--- NOTE | 2017-11-22 11:40 | CP.PCM.PN ---
Subjective - Date & Time of Evaluation Date of Evaluation: 11/22/17 Time of Evaluation: 11:38 - Subjective Subjective: Surgery Pt seen and examined. No acute events. Tolerating reg diet. Denies N/V. Has had BM since enema. Objective - Vital Signs/Intake and Output Vital Signs (last 24 hours): Temp Pulse Resp BP Pulse Ox 99 F 76 20 107/59 L 93 L 11/21/17 22:44 11/21/17 22:44 11/21/17 22:44 11/21/17 22:44 11/21/17 22:44 Intake and Output: 11/22/17 11/22/17 06:59 18:59 Intake Total 960 Output Total 1000 Balance -40 - Medications Medications: Current Medications Albuterol/Ipratropium (Duoneb 3 Mg/0.5 Mg (3 Ml) Ud) 3 ml IH [id number] [facility] Last Admin: 11/22/17 07:42 Dose: 3 ml Albuterol/Ipratropium (Duoneb 3 Mg/0.5 Mg (3 Ml) Ud) 3 ml IH Q2H PRN PRN Reason: Shortness of Breath Last Admin: 11/20/17 09:53 Dose: 3 ml Clozapine (Clozaril) 100 mg PO TID [facility] PRN Reason: Protocol Last Admin: 11/22/17 10:34 Dose: 100 mg Clozapine (Clozaril) 25 mg PO HS [facility] Last Admin: 11/21/17 21:01 Dose: 25 mg Clozapine (Clozaril) 100 mg PO HS [facility] PRN Reason: Protocol Last Admin: 11/21/17 21:01 Dose: 100 mg Docusate Sodium (Colace) 100 mg PO TID [facility] Last Admin: 11/22/17 10:34 Dose: 100 mg Dextrose/Sodium Chloride (Dextrose 5%/0.9% Ns 1000 Ml) 1,000 mls @ 50 mls/hr IV .Q20H [facility] Last Admin: 11/21/17 03:00 Dose: 50 mls/hr Levothyroxine Sodium (Synthroid) 88 mcg PO ACB [facility] Last Admin: 11/22/17 10:34 Dose: 88 mcg Lorazepam (Ativan) 2 mg IVP Q3H PRN; Protocol PRN Reason: Seizure activity Ondansetron HCl (Zofran Inj) 4 mg IVP Q4H PRN PRN Reason: Nausea/Vomiting Last Admin: 11/19/17 05:14 Dose: 4 mg Pantoprazole Sodium (Protonix Ec Tab) 20 mg PO 0600 [facility] Last Admin: 11/22/17 05:13 Dose: 20 mg Polyethylene Glycol (Miralax) 17 gm PO BID [facility] Last Admin: 11/22/17 10:33 Dose: 17 gm Sodium Chloride ([place] Nasal [place]) 0 ml NS DAILY PRN PRN Reason: Nasal congestion Last Admin: 11/18/17 10:59 Dose: 2 sprays - Labs Labs: 11/22/17 07:00 11/22/17 07:00 PT 11.3 SECONDS (9.4-12.5) 11/14/17 22:56 INR 0.99 (0.93-1.08) 11/14/17 22:56 APTT 31.1 Seconds (25.1-36.5) 11/16/17 05:30 - Constitutional Appears: No Acute Distress - Head Exam Head Exam: ATRAUMATIC, NORMAL INSPECTION, NORMOCEPHALIC - Eye Exam Eye Exam: EOMI, Normal appearance, PERRL Pupil Exam: NORMAL ACCOMODATION, PERRL - ENT Exam ENT Exam: Mucous Membranes Moist, Normal Exam - Neck Exam Neck Exam: Full ROM, Normal Inspection. absent: Lymphadenopathy - Respiratory Exam Respiratory Exam: Clear to Ausculation Bilateral, NORMAL BREATHING PATTERN - Cardiovascular Exam Cardiovascular Exam: REGULAR RHYTHM, +S1, +S2. absent: Murmur - GI/Abdominal Exam GI & Abdominal Exam: Soft, Normal Bowel Sounds. absent: Distended, Tenderness - Extremities Exam Extremities Exam: Full ROM, Normal Capillary Refill, Normal Inspection. absent : Joint Swelling, Pedal Edema - Back Exam Back Exam: NORMAL INSPECTION - Neurological Exam Neurological Exam: Alert, Awake, CN II-XII Intact, Normal Gait, Oriented x3 - Psychiatric Exam Psychiatric exam: Normal Affect, Normal Mood - Skin Skin Exam: Dry, Intact, Normal Color, Warm Assessment and Plan - Assessment and Plan (Free Text) Assessment: 61M admitted for seizures; surgery consulted for sbo; resolved TSH: 8, t4: 4 COnstipation Plan: NO surgical intervention. Regular diet ambulate WIll d/w Dr Elizondo
--- NOTE | 2017-11-22 13:32 | PN ---
DATE: LOCATION: Room 575. SUBJECTSUBJECTIVE: This is a 61-year-old male with recent symptomatic hypoglycemia and apparent supervening generalized seizure, which could have been provoked by a metabolic event and is now being followed closely by endocrine management. He also has underlying hypothyroidism and in fact, the repeat thyroid studies today shows still the presence of early hypothyroxinemia with a total T4 of 4.2 which is still low and a TSH of 7.91 which is still elevated as noted. His latest chemistry showed a BUN of 8, sodium 133, potassium 3.9, chloride 98, CO2 27, glucose 120 and creatinine 0.8. So at this time, we will titrate once again his levothyroxine to 100 mcg once daily before breakfast as ordered. We will obtain serial thyroid studies accordingly to optimize metabolic control. We will also continue the fingerstick glucose testing especially now that they have taken him off the dextrose infusion as noted. If hypoglycemic levels supervene, then may need the initiation of octreotide or frontal statin therapy as indicated. We will follow with you. Osiris Alvarado MD
--- NOTE | 2017-11-22 22:50 | PN ---
DATE: SUBJECTIVE: The patient is a 61-year-old, seen and examined, lying in bed, seems to be comfortable. No nausea or vomiting. No diarrhea. OBJECTIVE: VITAL SIGNS: The patient is afebrile, pulse 71, respirations 18, blood pressure 112/65. LUNGS: Bilateral fair airflow. No rhonchi or crackle. HEART: S1 and S2 audible. ABDOMEN: Soft, nontender. No rebound. No guarding. NEUROLOGICAL: He is awake and alert, able to communicate. EXTREMITIES: Bilateral leg, no edema. LABORATORY EXAM: WBC 6.9, hemoglobin 10.5, hematocrit 31.7, platelets 269. Chemistry: Blood sugar is 108, otherwise CMP; sodium 133, potassium 3.9, chloride 98, CO2 27, BUN 8, creatinine 0.8, blood sugar of 115. Urine tox is negative. ASSESSMENT: 1. Mentally challenged. 2. History of schizophrenia. 3. Syncope secondary to hypoglycemia. 4. History of hypothyroidism. PLAN: Currently, the patient is on frequent small meals. We will discontinue his IV fluids and keep him on laxative. If without IV fluids, he is maintaining his recent blood sugar and he will be discharged. Rowdy Tariq MD
[2017-11-23 01:29] VITALS: BP 118/73; PULSE 75; RESP 16; TEMP 98.7; O2SAT 94
--- NOTE | 2017-11-23 02:54 | PN ---
DATE:11/22/2017 SUBJECTIVE: This patient was seen and evaluated earlier today. Patient is on any IV fluids, tolerating diet, small portions, to avoid early dumping syndrome. PHYSICAL EXAMINATION: VITAL SIGNS: Patient is afebrile, blood pressure 112/65, respirations 18, pulse is 71. HEENT: Atraumatic, anicteric. NECK: Supple. HEART: S1 and S2 heard. LUNGS: Bilateral air entry present. ABDOMEN: Soft. No tenderness. EXTREMITIES: No cyanosis. No clubbing. No edema. LABORATORY DATA: Hemoglobin 10.5, hematocrit 31.7, WBC is 6.9, platelets 259. Chemistries, AST 70, ALT 79. IMPRESSION: This is a 61-year-old patient admitted with hypoglycemia, seizure and syncopal episode secondary to hypoglycemia, mentally challanged schizophrenia, history of hypothyroidism. RECOMMENDATIONS: I would recommend; 1. To continue the diet to avoid delayed dumping syndrome. 2. The patient needs to be seen by the graphic coordinator.I discussed with the Dr Tariq Need stool softners on retirement basis Patient is planned to be discharged tomorrow if he is tolerating the diet and remains asymptomatic and blood glucose remains stable. Patient needs GI and endocrinological followup at [place] Discussed with the nursing staff also. Felix Mcnair MD MTDD
[2017-11-23] MEDS: Albuterol-Ipratrop 3 mg / 0.5 (3 ml) UD IH SCH ×2 (05:46→08:42)
[2017-11-23] MEDS: Pantoprazole 20 mg EC Tab PO SCH (07:00)
[2017-11-23 07:28] LABS: BASO # 0.04 K/mm3 (0.0-2.0); BASO % 0.5 % (0.0-3.0); EOS # 0.2 (0.0-0.7); EOS % 2.4 % (1.5-5.0); GRAN # 6.03 (1.4-6.5); GRAN % 68.7 % (50.0-68.0); HEMOGLOBIN 10.2 g/dL (14.0-18.0); LYMPH # 1.9 (1.2-3.4); MEAN CELL VOLUME 79.7 fl (80.0-105.0); MEAN CORPUSCULAR HEMOGLOBIN 26.8 pg (25.0-35.0); MEAN CORPUSCULAR HGB CONC 33.7 g/dl (31.0-37.0); MEAN PLATELET VOLUME 8.8 fl (7.0-11.0); MONO # 0.6 (0.1-0.6); MONO % 6.4 % (1.0-6.0); RBC 3.8 10^6/uL (3.5-6.1); WHITE BLOOD COUNT 8.8 10^3/ul (4.5-11.0)
[2017-11-23] MEDS ORDERED: Levothyroxine 100 MCG TAB PO SCH (07:30)
[2017-11-23] MEDS ORDERED: Levothyroxine 88 MCG TAB PO SCH (07:30)
--- NOTE | 2017-11-23 07:30 | CP.PCM.PN ---
Subjective - Date & Time of Evaluation Date of Evaluation: 11/23/17 Time of Evaluation: 07:27 - Subjective Subjective: General Surgery: Dr Elizondo Pt S&E. EARNEST. Reports he is tolerating diet. Denies any further N/V, F/C, seizures, chest pain. Passing flatus. Has not had a BM since friday. Reports no abdominal pain. Objective - Vital Signs/Intake and Output Vital Signs (last 24 hours): Temp Pulse Resp BP Pulse Ox 98.7 F 75 16 118/73 94 L 11/22/17 22:00 11/22/17 22:00 11/22/17 22:00 11/22/17 22:00 11/22/17 22:00 - Medications Medications: Current Medications Albuterol/Ipratropium (Duoneb 3 Mg/0.5 Mg (3 Ml) Ud) 3 ml IH [id number] [facility] Last Admin: 11/23/17 05:46 Dose: Not Given Albuterol/Ipratropium (Duoneb 3 Mg/0.5 Mg (3 Ml) Ud) 3 ml IH Q2H PRN PRN Reason: Shortness of Breath Last Admin: 11/20/17 09:53 Dose: 3 ml Clozapine (Clozaril) 100 mg PO TID [facility] PRN Reason: Protocol Last Admin: 11/22/17 17:41 Dose: 100 mg Clozapine (Clozaril) 25 mg PO HS [facility] Last Admin: 11/22/17 21:46 Dose: 25 mg Clozapine (Clozaril) 100 mg PO HS [facility] PRN Reason: Protocol Last Admin: 11/22/17 21:47 Dose: 100 mg Docusate Sodium (Colace) 100 mg PO TID [facility] Last Admin: 11/22/17 17:41 Dose: 100 mg Levothyroxine Sodium (Synthroid) 100 mcg PO ACB [facility] Last Admin: 11/23/17 07:00 Dose: 100 mcg Lorazepam (Ativan) 2 mg IVP Q3H PRN; Protocol PRN Reason: Seizure activity Ondansetron HCl (Zofran Inj) 4 mg IVP Q4H PRN PRN Reason: Nausea/Vomiting Last Admin: 11/19/17 05:14 Dose: 4 mg Pantoprazole Sodium (Protonix Ec Tab) 20 mg PO 0600 [facility] Last Admin: 11/23/17 07:00 Dose: 20 mg Polyethylene Glycol (Miralax) 17 gm PO BID [facility] Last Admin: 11/22/17 17:41 Dose: 17 gm Sodium Chloride ([place] Nasal [place]) 0 ml NS DAILY PRN PRN Reason: Nasal congestion Last Admin: 11/18/17 10:59 Dose: 2 sprays - Labs Labs: 11/22/17 07:00 11/22/17 07:00 PT 11.3 SECONDS (9.4-12.5) 11/14/17 22:56 INR 0.99 (0.93-1.08) 11/14/17 22:56 APTT 31.1 Seconds (25.1-36.5) 11/16/17 05:30 - Constitutional Appears: Non-toxic, No Acute Distress - Head Exam Head Exam: NORMAL INSPECTION - ENT Exam ENT Exam: Mucous Membranes Moist - Respiratory Exam Respiratory Exam: absent: Accessory Muscle Use, Respiratory Distress - Cardiovascular Exam Cardiovascular Exam: REGULAR RHYTHM. absent: Tachycardia - GI/Abdominal Exam GI & Abdominal Exam: Soft (improved from previous examinations). absent: Distended, Guarding, Rigid, Tenderness, Hernia, Mass - Neurological Exam Neurological Exam: Alert, Awake - Psychiatric Exam Psychiatric exam: Normal Affect - Skin Skin Exam: Normal Color, Warm Assessment and Plan - Assessment and Plan (Free Text) Assessment: 61M adm dx: seizures/hypoglyemica: surgery consulted for SBO; ddx constipation; resolving. Plan: cont current diet cont colace TID clear for d/c from surgical standpoint no intervention planned will d/w Dr Mikhail Murrell, PGY3
[2017-11-23 07:48] LABS: ALB/GLOB RATIO 1.3 (1.1-1.8); ALBUMIN 3.3 g/dL (3.0-4.8); ALT/SGPT 101 U/L (7-56); AST/SGOT 73 U/L (17-59); BLOOD UREA NITROGEN 10 mg/dL (7-21); CALCIUM 8.2 mg/dL (8.4-10.5); GFR AFRICAN-AMERICAN > 60; GFR NON-AFRICAN AMERICAN > 60
[2017-11-23] MEDS: POLYETHYLENE GLYCOL 3350 17 GM/Dose PACKET PO SCH (09:32)
--- NOTE | 2017-11-23 15:19 | PN ---
DATE: ENDOCRINOLOGY FOLLOWUP The patient is in the room 575. This is a 61-year-old male with recent uncontrolled bouts of symptomatic hypoglycemia, most likely related to functional hypoglycemia with improving metabolic profile as noted thereof. He is currently on a high protein, frequent small feedings as given. He also has recent early overt hypothyroidism with recent dose modifications undertaken. therapy as given. His latest T4 is 4.2 with a TSH of 7.91. His hormonal assays, such as, a C-peptide and serum insulin level are still pending at this time. The latest chemistry showed a BUN of 10, sodium 133, potassium 4.1, chloride 99, CO2 of 26, glucose 118 and creatinine 0.7. So at this time, we will continue the modified levothyroxine given as 100 mcg once daily before breakfast as ordered. We will titrate incrementally as indicated to optimize metabolic control. We will obtain serial chemistries and supplement accordingly as needed. We will follow and advise accordingly. Osiris Alvarado MD
--- NOTE | 2017-11-24 04:31 | DS ---
HISTORY OF PRESENT ILLNESS: Patient is a 61 years old, who came to emergency room on 11/15 after, according to the sister, he was sitting in the chair, his eyes rolled up, and he became unresponsive, they called EMS and was brought to the emergency room. Incidentally, he was found to have low blood sugar of 20. He was given D50. When he came to ER, his blood sugar was still down. At that point, he was also found to have some blood in his cavernous sinus. So, patient was admitted in the ICU and had MRI of the brain that was unremarkable. Neuro consult was done. Patient remained persistently hypoglycemic. Endocrine consult by Dr. Osiris Alvarado was done. Patient does have a significant past medical history of esophageal resection, according to brother, because of side effect of clozapine and he ended up having surgery for significant esophageal stenosis; so his stomach was pulled in the esophagus and he had similar episode a couple of years ago, but he recovered. So, patient was admitted in the ICU, remained on IV fluid. At one point, he developed partial small bowel obstruction and was given laxative and his obstruction resolved. So, he was restarted on his oral feeding. IV fluid discontinued. Has been maintaining his blood sugar. PHYSICAL EXAMINATION: GENERAL: Today, he is awake, alert, oriented, communicative. VITAL SIGNS: Afebrile, pulse 76, respirations 16, blood pressure 118/73. LUNGS: Bilateral good airflow. No rhonchi or crackle. HEART: S1 and S2 audible. ABDOMEN: Soft, nontender. No rebound. No guarding. NEUROLOGIC: Patient is awake and alert. Able to communicate, mentally slow. LABORATORY EXAM: WBC is 8.8, hemoglobin 10.2, hematocrit 30.3, platelet of 305. Chemistry: Sodium 133, potassium 4.4, chloride 99, CO2 of 26, BUN 10, creatinine 0.7, blood sugar of 118, calcium 8.3. AST 73, ALT 101, alk phos 139. ASSESSMENT: 1. Syncope. 2. History of gastric and esophageal surgery. 3. Schizophrenia. 4. Anxiety disorder. PLAN: Patient is being discharged home. He will resume his medication. He will follow up with his PMD, Dr. Saenz. He will resume his Nexium, levothyroxine. Rowdy Tariq MD [facility] # [id number]
--- NOTE | 2017-11-24 09:11 | PN ---
DATE: 11/21/2017 SUBJECTIVE: The patient is a 61-year-old, seen and examined, lying in bed, seems to be comfortable. He states he is hungry, he wants to eat food. He was n.p.o. yesterday after he was found to have dilated loops of small bowel. He had 2 bowel movements yesterday. Seems to be comfortable. PHYSICAL EXAMINATION: VITAL SIGNS: He is afebrile, pulse 74, respirations 20, blood pressure 115/66. LUNGS: Bilateral good airflow. No rhonchi or crackle. HEART: S1 and S2 audible. ABDOMEN: Soft. Less distended. Bowel sounds are positive. LABORATORY DATA: WBC 6.6, hemoglobin 10.2, hematocrit 30.4, platelet of 277. Chemistry: Sodium 132, potassium 4, chloride 97, CO2 of 28, BUN 11, creatinine 0.8, blood sugar 113, calcium 8.2. ASSESSMENT: 1. Status post multiple episodes of hypoglycemia. 2. History of esophageal resection because of stenosis as per brother. He developed severe esophageal stenosis because of surgery done when he had stomach pulled up and had partial resection done. 3. Syncope secondary to hypoglycemia. 4. Partial small bowel obstruction. PLAN: We will taper down his IV fluid. We will start him on p.o. diet. If the patient's blood sugar is maintained in range of 80-120 on oral feeding, we will discontinue IV fluid and he will be advised to take 6 small meals regularly. I discussed with the patient's brother who was by the bedside and they already know that they were told to give him high-protein, high-fat, schedule 6 meals a day. The patient remains stable. Plan for discharge home tomorrow. Rowdy Tariq MD
--- NOTE | 2017-11-24 09:18 | PN ---
DATE: 11/21/2017 ENDOCRINOLOGY FOLLOWUP NOTE LOCATION: In room 575. SUBJECTIVE: This is a 61-year-old male, presenting here with generalized seizure disorder, most likely precipitated by metabolic event and has also had recent symptomatic hypoglycemia with associated neuroglycopenic and hyperadrenergic manifestations of the same. His glycemic levels are fluctuating, but much improved at this time and is still on the D5 normal saline infusion as given. His glucose values have ranged from 130 to 151 and 133 mg/dL. His latest chemistry shows a BUN of 11, sodium 132, potassium 4.0, chloride 97, CO2 of 28, glucose 113, and creatinine 0.8. So, at this time, we will discontinue the D5 normal saline infusion and observe his metabolic and clinical response especially for the predilection for symptomatic hypoglycemia. We will continue the high-protein diet with six frequent small feedings as ordered. We will follow with. Osiris Alvarado MD
== END 2017-11-23 13:43 | disposition home or self-care (01) | DRG 101 ==
LOC: ED 21:59 → ERH 11-15 02:26 → CCU 11-15 03:26 → 5RSO 11-20 12:40
PROVIDERS: ADMIT Internal Medicine; ATTEND Internal Medicine
DX: G40.89 Other seizures (principal); E87.1 Hypo-osmolality and hyponatremia; K56.7 Ileus, unspecified; R64 Cachexia; D64.9 Anemia, unspecified; E06.3 Autoimmune thyroiditis; E07.81 Sick-euthyroid syndrome; E16.1 Other hypoglycemia; E78.5 Hyperlipidemia, unspecified; F25.9 Schizoaffective disorder, unspecified; F41.9 Anxiety disorder, unspecified; I10 Essential (primary) hypertension; K91.1 Postgastric surgery syndromes; M41.9 Scoliosis, unspecified; M47.9 Spondylosis, unspecified; R32 Unspecified urinary incontinence; Z85.118 Personal history of other malignant neoplasm of bronchus and lung; Z80.1 Family history of malignant neoplasm of trachea, bronchus and lung; Z80.3 Family history of malignant neoplasm of breast; Z87.891 Personal history of nicotine dependence; Z88.1 Allergy status to other antibiotic agents; Z88.8 Allergy status to other drugs, medicaments and biological substances; Z87.892 Personal history of anaphylaxis